=== PATIENT | female | born 1980 | race African-American/Black ===

== ENCOUNTER 2017-06-22 10:41 | Emergency (ER) | payer MEDICAID, OTHER ==
--- NOTE | 2017-06-22 11:08 | ER Document Report ---
ED Medical Screen (RME) - General Chief Complaint: Abdominal Pain Stated Complaint: ABDOMINAL PAIN Time Seen by Provider: 06/22/17 11:06 TRAVEL OUTSIDE OF THE [place] IN LAST 30 DAYS: No - HPI Notes: 06/22/17 11:07 Pain at scar along with spotting and vaginal discharge. - Related Data Allergies/Adverse Reactions: No Known Drug Allergies Allergy (Verified 06/22/17 10:42) Past Medical History - Past Medical History Cardiac Medical History: Denies: Hx Hypertension Pulmonary Medical History: Denies: Hx Asthma, Hx Bronchitis Musculoskeltal Medical History: Denies Hx Arthritis, Denies Hx Musculoskeletal Deformity, Denies Hx Musculoskeletal Trauma Traumatic Medical History: Denies: Hx Fractures Past Surgical History: Reports: Hx Abdominal Surgery - umbilical hernia, Hx Section - 2, Hx Tubal Ligation, Hx Umbilical Hernia - Immunizations Immunizations up to date: Yes Hx Diphtheria, Pertussis, Tetanus Vaccination: Yes Review of Systems - Review of Systems Constitutional: No symptoms reported EENT: No symptoms reported Cardiovascular: No symptoms reported Respiratory: No symptoms reported Gastrointestinal: Abdominal pain Genitourinary: No symptoms reported Female Genitourinary: Vaginal discharge Musculoskeletal: No symptoms reported Skin: No symptoms reported Hematologic/Lymphatic: No symptoms reported Neurological/Psychological: No symptoms reported Physical Exam - Vital signs Vitals: Temp Pulse Resp BP Pulse Ox 97.8 F 90 20 136/86 H 100 06/22/17 10:44 06/22/17 10:44 06/22/17 10:44 06/22/17 10:44 06/22/17 10:44 - Respiratory Respiratory status: No respiratory distress Chest status: Nontender Breath sounds: Normal Chest palpation: Normal Course - Vital Signs Vital signs: Temp Pulse Resp BP Pulse Ox 97.8 F 90 20 136/86 H 100 06/22/17 10:44 06/22/17 10:44 06/22/17 10:44 06/22/17 10:44 06/22/17 10:44
--- NOTE | 2017-06-22 11:32 | ER Document Report ---
ED GI/ - General Chief Complaint: Abdominal Pain Stated Complaint: ABDOMINAL PAIN Time Seen by Provider: 06/22/17 11:06 Notes: Patient is a 37-year-old female who presents emergency department the chief complaint of pelvic pain for the past 5 months. Patient states that she has had cramping and pelvic pain with pain with intercourse most recently and noticed discharge over the past 4 weeks. Patient denies any fevers or chills. She states that she is sexually active with her fianc and does not use protection. States that her last menstrual period was June 09. She states that recently she did try to douche and noticed significant spotting afterwards. She states that she intermittently has some blood with the discharge. She went to go [facility]up [facility] for [facility] complaint but they referred her to the emergency department. Past medical history significant for previous cervical abnormality on Pap smear. States her last Pap smear was 3 years ago. History of depression, arthritis, asthma and GERD. Previous tubal ligation Past medical history significant for 1 with a previous in 2009. Patient is a tobacco smoker. [facility] care is with the [facility] TRAVEL OUTSIDE OF THE [place] IN LAST 30 DAYS: No - Related Data Allergies/Adverse Reactions: No Known Drug Allergies Allergy (Verified 06/22/17 10:42) Past Medical History - Social History Smoking Status: Current Every Day Smoker Frequency of alcohol use: None Drug Abuse: None Family History: Arthritis, Hyperlipidemia. denies: CAD - atrial fib Patient has suicidal ideation: No Patient has homicidal ideation: No - Past Medical History Cardiac Medical History: Denies: Hx Hypertension Pulmonary Medical History: Denies: Hx Asthma, Hx Bronchitis Renal/ Medical History: Denies: Hx Peritoneal Dialysis Musculoskeltal Medical History: Denies Hx Arthritis, Denies Hx Musculoskeletal Deformity, Denies Hx Musculoskeletal Trauma Traumatic Medical History: Denies: Hx Fractures Past Surgical History: Reports: Hx Abdominal Surgery - umbilical hernia, Hx Section - 2, Hx Tubal Ligation, Hx Umbilical Hernia - Immunizations Immunizations up to date: Yes Hx Diphtheria, Pertussis, Tetanus Vaccination: Yes Review of Systems - Review of Systems Constitutional: No symptoms reported Cardiovascular: No symptoms reported Respiratory: No symptoms reported Gastrointestinal: No symptoms reported Genitourinary: No symptoms reported Female Genitourinary: See HPI Musculoskeletal: No symptoms reported -: Yes All other systems reviewed and negative Physical Exam - Vital signs Vitals: Temp Pulse Resp BP Pulse Ox 97.8 F 90 20 136/86 H 100 06/22/17 10:44 06/22/17 10:44 06/22/17 10:44 06/22/17 10:44 06/22/17 10:44 - Notes Notes: PHYSICAL EXAM GENERAL: Alert, interacts well. HEAD: Normocephalic, atraumatic. EYES: Pupils equal, round, and reactive to light. Extraocular movements intact. ENT: Oral mucosa moist, tongue midline. NECK: Full range of motion. Supple. Trachea midline. LUNGS: Clear to auscultation bilaterally, no wheezes, rales, or rhonchi. No respiratory distress. HEART: Regular rate and rhythm. No murmurs, gallops, or rubs. ABDOMEN: Soft, nondistended, moderate suprapubic tenderness. No guarding, rebound, or rigidity.. Bowel sounds present in all 4 quadrants. FEMALE : Normal external exam. No evidence of lesions, lacerations, bruising or vesicles. Speculum exam normal cervix closed. evidence of vaginal discharge that is yellow/cloudy. Cervix is a collection of cloudy fluid. The cervix is enlarged, friable without smooth borders.. No evidence of lesions. No vaginal bleeding. Bimanual exam positive for cervical motion tenderness. No adnexal mass or adnexal tenderness. EXTREMITIES: Moves all 4 extremities spontaneously. No edema, radial and dorsalis pedis pulses 2/4 bilaterally. No cyanosis. NEUROLOGICAL: Alert and oriented x4. Normal speech. PSYCH: Normal affect, normal mood. SKIN: Warm, dry, normal turgor. No rashes or lesions noted. Course - Re-evaluation Re-evalutation: 06/22/17 16:56 Patient is a 37-year-old female is hemodynamically stable, no acute distress and afebrile. Abdominal exam concerning for PID. Patient without any evidence of leukocytosis or anemia. Chemistry without evidence of electrolyte abnormalities, renal or hepatic insufficiency. Urinalysis without evidence of UTI. Patient is afebrile. Repeat exams without any significant tenderness after p.o. pain medication. Given exam concerning for PID will treat despite negative serologies. Patient will be discharged home on doxycycline [facility] Patient given strict return precautions and stable for discharge home. - Vital Signs Vital signs: Temp Pulse Resp BP Pulse Ox 97.8 F 90 20 136/86 H 100 06/22/17 10:44 06/22/17 10:44 06/22/17 10:44 06/22/17 10:44 06/22/17 10:44 - Laboratory Result Diagrams: 06/22/17 13:28 06/22/17 13:28 Laboratory results interpreted by me: 06/22/17 06/22/17 06/22/17 13:05 13:28 13:28 Hgb 11.7 L Hct 34.5 L Chloride 108 H Total Bilirubin < 0.1 L Urine Blood SMALL H - Diagnostic Test Radiology reviewed: Reports reviewed Discharge - Discharge Clinical Impression: Pelvic pain, PID (acute pelvic inflammatory disease) Condition: Good Disposition: HOME, SELF-CARE Additional Instructions: PELVIC PAIN: There are many causes of pain in the pelvic area. The cause could be the tubes, ovaries, uterus, intestines, appendix, pelvic muscles and connective tissue, or the urinary tract. The cause of your pelvic pain is not clear. However, it seems safe to treat you outside the hospital. If the pain sounds like a temporary problem, we sometimes wait to see if it goes away. Other patients may need additional tests, such as pelvic ultrasound or cultures. Conditions may change. Call us or come back for reexamination if any problems occur, such as: (1) Pain that becomes more severe, steady, or becomes concentrated in one specific area. Also, pain that is more severe with movement or coughing. (2) Vomiting that persists or becomes more frequent. (3) Blood in the vomitus, urine, or bowel movements. Blood in the stool may have a tarry or black appearance. (4) Shaking chills or fever greater than 100 degrees. (5) The abdomen becomes more distended or swollen. (6) Bowel movements cease. (7) Heavy vaginal bleeding. PELVIC INFLAMMATORY DISEASE: You have been diagnosed as having pelvic inflammatory disease (PID). This is an infection of the fallopian tubes and surrounding areas of the pelvis. Symptoms are usually pelvic pain and discharge. The infection can do permanent damage to the tubes and ovaries. It should be taken very seriously. Treatment is antibiotics, which may be given by vein or by injection if the infection seems serious. It's important that you receive all recommended medication. Condoms help prevent spread of this infection to others. Because this infection is spread sexually, it's important that your sexual partner be checked before resuming sexual relations. If a culture shows gonorrhea or chlamydia organisms, the law requires that this be reported to the health department. Call the doctor or return at once if you develop increasing fever, rash, severe pelvic pain, vaginal bleeding (other than your period), or problems with your bladder or bowels. ANTIBIOTIC THERAPY: You have been given an antibiotic prescription. It's important that you take all the medication, unless instructed otherwise by your physician. Failure to complete the entire course can result in relapse of your condition. Common side effects of antibiotics include nausea, intestinal cramping, or diarrhea. Women may develop vaginal yeast infections, and babies can get yeast (thrush) in the mouth following the use of antibiotics. Contact your physician if you develop significant side effects from this medication. Allergy to this antibiotic can result in hives, wheezing, faintness, or itching. If symptoms of allergy occur, stop the medication and call the doctor. CEPHALOSPORINS: An antibiotic of the cephalosporin class has been prescribed. This type of antibiotic covers a wide variety of infections, including those of the skin, lungs, middle ear, and urinary tract. This antibiotic is somewhat similar to the penicillin family. In rare cases , a person who is allergic to penicillin will also be allergic to this medication. If you have had a severe allergic reaction to penicillin, and have not taken this antibiotic since that time, notify your doctor. Antibiotics which cover many germs ("broad spectrum" antibiotics) are more likely to cause diarrhea or "yeast" infections. Women prone to vaginal yeast problems may suffer an attack after taking this antibiotic. In infants, oral thrush (white spots "stuck" on the cheek) or yeast diaper rash may result. See your doctor if these problems occur. Call the doctor at once if you develop hives, itching, shortness of breath , or lightheadedness. DOXYCYCLINE: Doxycycline (Vibramycin, Doryx) is an antibiotic of the tetracycline family. This type of drug is useful for infections of the respiratory tract and genital tract, and is sometimes used for intestinal infections. Unlike most tetracyclines, doxycycline can be taken with food. It is longer acting, and (usually) less prone to side effects than regular tetracycline. Tetracycline antibiotics can stain immature teeth and SHOULD NOT BE TAKEN BY CHILDREN, NURSING MOTHERS, OR WOMEN. Tetracyclines can make you more prone to sunburn. Abdominal cramping, nausea, and diarrhea are occasional side effects. Women may experience vaginal yeast infections. Call the doctor at once if you develop hives, itching, shortness of breath , or lightheadedness. AZITHROMYCIN: Azithromycin (Zithromax) is a broad spectrum antibiotic in the same class as erythromycin. It can treat a variety of bacterial infections, but is most frequently used for respiratory infections. Azithromycin is extremely long-lasting. It accumulates in body tissues and continues to kill bacteria for many days. In order to improve absorption, Azithromycin should be taken at least one hour before or two hours after a meal. It does not have the same strong tendency to upset the stomach as erythromycin and is usually very well tolerated. Patients who have had a rash or other true allergic reactions to erythromycin should not take this medication. Call if you develop gastrointestinal distress, severe diarrhea, rash, hives, itching, or shortness of breath. FOLLOW-UP CARE: If you have been referred to a physician for follow-up care, call the physician s office for an appointment as you were instructed or within the next two days. If you experience worsening or a significant change in your symptoms, notify the physician immediately or return to the Emergency Department at any time for re-evaluation. Prescriptions: Doxycycline Hyclate 100 mg PO BID #28 capsule Forms: Return to Work Referrals: KORIN VILLATORO MD [Primary Care Provider] - Follow up as needed [facility] [Provider Group] - 07/05/17 [facility] [Provider Group] - 07/02/17
[2017-06-22 12:17] LABS: BACTERIA (WET MOUNT) 4+ BACTERIA SEEN; RBCS (WET MOUNT) 2+ RBCS SEEN; T.VAGINALIS (WET MOUNT) NO TRICHOMONAS SEEN; WBCS (WET MOUNT) 2+ WBCS SEEN; YEAST (WET MOUNT) NO YEAST SEEN
[2017-06-22 13:41] LABS: ABSOLUTE BASOPHILS # (AUTO) 0.1 10^3/uL (0.0-0.2); ABSOLUTE EOSINOPHILS # (AUTO) 0.1 10^3/uL (0.0-0.6); ABSOLUTE MONOCYTES (AUTO) 0.7 10^3/uL (0.1-1.4); HEMOGLOBIN 11.7 g/dL (12.0-15.5); TOTAL CELLS COUNTED % (AUTO) 100 %
[2017-06-22 13:42] LABS: CHLAM PCR NOT DETECTED (NOT DETECT); GON PCR NOT DETECTED (NOT DETECT)
[2017-06-22 13:50] LABS: ABSOLUTE LYMPHOCYTES (AUTO) 2.2 10^3/uL (0.5-4.7); ABSOLUTE NEUT (AUTO) 5.5 10^3/uL (1.7-8.2); BASOPHILS % (AUTO) 1.2 % (0-2); EOSINOPHILS % (AUTO) 1.7 % (0-6); HEMATOCRIT 34.5 % (36.0-47.0); LYMPHOCYTES % (AUTO) 25.4 % (13-45); MEAN CORPUSCULAR HEMOGLOBIN 28.7 pg (27.0-33.4); MEAN CORPUSCULAR HGB CONC 33.8 g/dL (32.0-36.0); MEAN CORPUSCULAR VOLUME 85 fl (80-97); MONOCYTES % (AUTO) 7.7 % (3-13); PLATELET COUNT 357 10^3/uL (150-450); RED BLOOD COUNT 4.06 10^6/uL (3.72-5.28); WHITE BLOOD COUNT 8.6 10^3/uL (4.0-10.5)
[2017-06-22 13:56] LABS: ALANINE AMINOTRANSFERASE 24 U/L (9-52); ALBUMIN 3.5 g/dL (3.5-5.0); ALKALINE PHOSPHATASE 57 U/L (38-126); ANION GAP 11 (5-19); ASPARTATE AMINO TRANSFERASE 15 U/L (14-36); BLOOD UREA NITROGEN 12 mg/dL (7-20); CALCIUM 9.7 mg/dL (8.4-10.2); CARBON DIOXIDE 24 mmol/L (22-30); CHLORIDE 108 mmol/L (98-107); GLUCOSE 94 mg/dL (75-110); POTASSIUM 4.1 mmol/L (3.6-5.0); SODIUM 143.1 mmol/L (137-145); TOTAL PROTEIN 6.9 g/dL (6.3-8.2)
[2017-06-22 13:59] LABS: APPEARANCE,URINE CLEAR; BILIRUBIN,URINE NEGATIVE (NEGATIVE); COLOR,URINE YELLOW; GLUCOSE, URINE NEGATIVE (NEGATIVE); KETONES,URINE NEGATIVE (NEGATIVE); LEUKOCYTE ESTERASE,URINE NEGATIVE (NEGATIVE); NITRITE,URINE NEGATIVE (NEGATIVE); PROTEIN,URINE NEGATIVE (NEGATIVE); UROBILINOGEN,URINE NEGATIVE mg/dL (<2.0)
[2017-06-22 14:00] LABS: BILIRUBIN,TOTAL < 0.1 mg/dL (0.2-1.3)
[2017-06-22] MEDS ORDERED: ACETAMINOPHEN 325 MG TABLET PO ONE (14:16)
[2017-06-22] MEDS ORDERED: IBUPROFEN 800 MG TABLET PO ONE (14:16)
--- NOTE | 2017-06-22 16:49 | RADIOLOGY REPORT (SQ) ---
EXAM DESCRIPTION: U/S NON OB PEL TV W/DOPPLER COMPLETED DATE/TIME: 06/22/2017 4:25 pm REASON FOR STUDY: vaginal discharge, CMT, (-)GC, h/o abnl pap COMPARISON: None. TECHNIQUE: Dynamic and static grayscale images acquired of the pelvis via transvaginal approach and recorded on PACS. Additional selected color Doppler and spectral images recorded. LIMITATIONS: None. FINDINGS: UTERUS: Contour normal. No mass. ENDOMETRIAL STRIPE: No focal or generalized thickening. No masses. CERVIX: No nabothian cysts. RIGHT ADNEXUM: Ovary not visualized. LEFT ADNEXUM: Ovary not visualized. FREE FLUID: None noted. OTHER: No other significant finding. MEASUREMENTS: UTERUS: 10.9 x 4.6 x 5.5 cm ENDOMETRIAL STRIPE: 12 mm RIGHT OVARY: Not visualized. LEFT OVARY: Not visualized. IMPRESSION: Endometrium as above. Correlate with menstrual cycle. TECHNICAL DOCUMENTATION: JOB ID: [id number] [employer]- All Rights Reserved Reading location - IP/workstation name: [email or web address]
[2017-06-22] MEDS ORDERED: LIDOCAINE 1% INJ-PF (10 MG/ML) 30 ML SDV INJ ONE (16:55)
[2017-06-22] MEDS ORDERED: DOXYCYCLINE HYCLATE 100 MG TABLET PO ONE (16:55)
[2017-06-22] MEDS ORDERED: AZITHROMYCIN 250 MG TABLET PO ONE (16:55)
[2017-06-22] MEDS ORDERED: CEFTRIAXONE INJ 250 MG VIAL IM ONE (16:55)
[2017-06-22 18:12] VITALS: BP 127/87
== END 2017-06-22 18:10 | disposition home or self-care (01) ==
LOC: ER 10:41
DX: N73.9 Female pelvic inflammatory disease, unspecified (principal); R10.2 Pelvic and perineal pain; F17.200 Nicotine dependence, unspecified, uncomplicated
CPT/HCPCS: 99284; 96372; 36415; 87210; 84703; 85025; 80053; 81001; 87491; 87591; 76830; 93976; J3490; J0696

== ENCOUNTER 2017-07-30 19:47 | Emergency (ER) | payer OTHER ==
[2017-07-30 20:04] VITALS: BP 157/106
[2017-07-30] MEDS ORDERED: FENTANYL CITRATE INJ/PF 100 MCG/2 ML AMPUL IM ONE (20:06)
--- NOTE | 2017-07-30 20:07 | ER Document Report ---
ED Medical Screen (RME) - General Chief Complaint: Abdominal Pain Stated Complaint: ABDOMINAL PAIN Time Seen by Provider: 07/30/17 20:00 Notes: RAPID MEDICAL EVALUATION DISCLOSURE I have seen this patient as part of a Rapid Medical Evaluation and, if applicable, placed any initially appropriate orders. The patient will be seen and fully evaluated, including a full history and physical exam, by a provider ( in Main ED or Fast Track) when a room becomes available. 37-year-old female here with complaints of continued and progressively worsening lower abdominal pain and vaginal bleeding with clots. The abdominal pain has been ongoing for several months now however the bleeding with clots has been over the last 2 weeks. She has not had any nausea vomiting diarrhea dysuria. She has been taking Motrin for the pain. EXAM Mild diffuse tenderness to palpation more prominent in lower quadrants exam deferred to main provider TRAVEL OUTSIDE OF THE [place] IN LAST 30 DAYS: No - Related Data Allergies/Adverse Reactions: No Known Drug Allergies Allergy (Verified 06/22/17 10:42) Past Medical History - Past Medical History Cardiac Medical History: Denies: Hx Hypertension Pulmonary Medical History: Denies: Hx Asthma, Hx Bronchitis Renal/ Medical History: Denies: Hx Peritoneal Dialysis Musculoskeltal Medical History: Denies Hx Arthritis, Denies Hx Musculoskeletal Deformity, Denies Hx Musculoskeletal Trauma Traumatic Medical History: Denies: Hx Fractures Past Surgical History: Reports: Hx Abdominal Surgery - umbilical hernia, Hx Section - 2, Hx Tubal Ligation, Hx Umbilical Hernia - Immunizations Immunizations up to date: Yes Hx Diphtheria, Pertussis, Tetanus Vaccination: Yes Physical Exam - Vital signs Vitals: Temp Pulse Resp BP Pulse Ox 98.2 F 69 18 157/106 H 100 07/30/17 20:03 07/30/17 20:03 07/30/17 20:03 07/30/17 20:03 07/30/17 20:03 Course - Vital Signs Vital signs: Temp Pulse Resp BP Pulse Ox 98.2 F 69 18 157/106 H 100 07/30/17 20:03 07/30/17 20:03 07/30/17 20:03 07/30/17 20:03 07/30/17 20:03 Doctor's Discharge - Discharge Referrals: KORIN VILLATORO MD [Primary Care Provider] - Follow up as needed
[2017-07-30 21:10] LABS: ABSOLUTE EOSINOPHILS # (AUTO) 0.1 10^3/uL (0.0-0.6); ABSOLUTE LYMPHOCYTES (AUTO) 2.1 10^3/uL (0.5-4.7); ABSOLUTE MONOCYTES (AUTO) 0.6 10^3/uL (0.1-1.4); ABSOLUTE NEUT (AUTO) 6.7 10^3/uL (1.7-8.2); BASOPHILS % (AUTO) 0.3 % (0-2); EOSINOPHILS % (AUTO) 1.1 % (0-6); HEMATOCRIT 33.9 % (36.0-47.0); HEMOGLOBIN 11.3 g/dL (12.0-15.5); MEAN CORPUSCULAR HEMOGLOBIN 27.6 pg (27.0-33.4); MEAN CORPUSCULAR HGB CONC 33.3 g/dL (32.0-36.0); MEAN CORPUSCULAR VOLUME 83 fl (80-97); MONOCYTES % (AUTO) 5.8 % (3-13); PLATELET COUNT 467 10^3/uL (150-450); RED BLOOD COUNT 4.08 10^6/uL (3.72-5.28); RED CELL DISTRIBUTION WIDTH 13.9 % (11.5-14.0); SEGMENTED NEUTROPHILS % (AUTO) 70.8 % (42-78); TOTAL CELLS COUNTED % (AUTO) 100 %; WHITE BLOOD COUNT 9.5 10^3/uL (4.0-10.5)
--- NOTE | 2017-07-30 21:18 | RADIOLOGY REPORT (SQ) ---
EXAM DESCRIPTION: U/S NON OB PEL TV W/DOPPLER COMPLETED DATE/TIME: 07/30/2017 8:56 pm REASON FOR STUDY: hx PID, c/o lower abd pain; eval TOA PID etc COMPARISON: None. TECHNIQUE: Dynamic and static grayscale images acquired of the pelvis via transvaginal approach and recorded on PACS. Additional selected color Doppler and spectral images recorded. LIMITATIONS: Bowel gas. FINDINGS: UTERUS: Heterogeneous appearance of the uterus. Endometrial stripe not identified. RIGHT OVARY AND DOPPLER: Ovary not visualized. LEFT OVARY AND DOPPLER: Ovary not visualized. FREE FLUID: None noted. OTHER: No other significant finding. MEASUREMENTS: UTERUS: 11.4 x 6.7 x 4.2 cm IMPRESSION: Heterogeneous appearance of the uterus. Endometrial stripe not identified. Nonvisualization of the ovaries. TECHNICAL DOCUMENTATION: JOB ID: [id number] [employer]- All Rights Reserved Rev-07/02 Reading location - IP/workstation name: [email or web address]
[2017-07-30 21:28] LABS: ALANINE AMINOTRANSFERASE 27 U/L (9-52); ALBUMIN 4.3 g/dL (3.5-5.0); ALKALINE PHOSPHATASE 64 U/L (38-126); ANION GAP 12 (5-19); ASPARTATE AMINO TRANSFERASE 17 U/L (14-36); BILIRUBIN,DIRECT 0.3 mg/dL (0.0-0.4); BILIRUBIN,TOTAL 0.3 mg/dL (0.2-1.3); BLOOD UREA NITROGEN 13 mg/dL (7-20); CALCIUM 9.8 mg/dL (8.4-10.2); CARBON DIOXIDE 27 mmol/L (22-30); CHLORIDE 105 mmol/L (98-107); GLUCOSE 89 mg/dL (75-110); SODIUM 143.5 mmol/L (137-145); TOTAL PROTEIN 7.9 g/dL (6.3-8.2)
[2017-07-30 23:04] LABS: T.VAGINALIS (WET MOUNT) NO TRICHOMONAS SEEN; WBCS (WET MOUNT) 2+ WBCS SEEN; YEAST (WET MOUNT) NO YEAST SEEN
[2017-07-31] MEDS ORDERED: CEFTRIAXONE INJ 250 MG VIAL IM ONE (00:11)
[2017-07-31] MEDS ORDERED: LIDOCAINE 1% INJ-PF (10 MG/ML) 30 ML SDV INFIL ONE (00:11)
--- NOTE | 2017-07-31 00:11 | ER Document Report ---
ED General - General Chief Complaint: Abdominal Pain Stated Complaint: ABDOMINAL PAIN Time Seen by Provider: 07/30/17 20:00 Mode of Arrival: Ambulatory Information source: Patient Notes: 29-year-old female patient presents with complaint of 2 month history of low abdominal/pelvic pain. Patient reports that she has a mucousy vaginal discharge that is different from usual. Patient reports that she was seen here on June 22 and placed on doxycycline. Patient was supposed to follow-up with the [place] clinic however patient has not received an appropriate appointment yet. Patient reports that she has also been having irregular periods with irregular bleeding and breakthrough bleeding. Patient reports her last normal menstrual cycle was in February and that ever since then she has had irregular bleeding. Patient reports past medical history of a tubal ligation, and hernia repair. She denies any fevers, nausea or vomiting. TRAVEL OUTSIDE OF THE U[place]S. IN LAST 30 DAYS: No - Related Data Allergies/Adverse Reactions: No Known Drug Allergies Allergy (Verified 06/22/17 10:42) Past Medical History - General Information source: Patient - Social History Smoking Status: Current Every Day Smoker Frequency of alcohol use: None Drug Abuse: None Family History: Arthritis, Hyperlipidemia. denies: CAD - atrial fib Patient has suicidal ideation: No Patient has homicidal ideation: No - Past Medical History Cardiac Medical History: Denies: Hx Hypertension Pulmonary Medical History: Denies: Hx Asthma, Hx Bronchitis Renal/ Medical History: Denies: Hx Peritoneal Dialysis Musculoskeltal Medical History: Denies Hx Arthritis, Denies Hx Musculoskeletal Deformity, Denies Hx Musculoskeletal Trauma Traumatic Medical History: Denies: Hx Fractures Past Surgical History: Reports: Hx Abdominal Surgery - umbilical hernia, Hx Section - 2, Hx Tubal Ligation, Hx Umbilical Hernia - Immunizations Immunizations up to date: Yes Hx Diphtheria, Pertussis, Tetanus Vaccination: Yes Review of Systems - Review of Systems Constitutional: No symptoms reported EENT: No symptoms reported Cardiovascular: No symptoms reported Respiratory: No symptoms reported Gastrointestinal: See HPI Genitourinary: See HPI Female Genitourinary: No symptoms reported Musculoskeletal: No symptoms reported Skin: No symptoms reported Hematologic/Lymphatic: No symptoms reported Neurological/Psychological: No symptoms reported Physical Exam - Vital signs Vitals: Temp Pulse Resp BP Pulse Ox 98.2 F 69 18 157/106 H 100 07/30/17 20:03 07/30/17 20:03 07/30/17 20:03 07/30/17 20:03 07/30/17 20:03 - Notes Notes: PHYSICAL EXAMINATION: GENERAL: Well-appearing, well-nourished and in no acute distress. HEAD: Atraumatic, normocephalic. EYES: Pupils equal round and reactive to light, extraocular movements intact, conjunctiva are normal. ENT: Nares patent, oropharynx clear without exudates. Moist mucous membranes. NECK: Normal range of motion, supple without lymphadenopathy LUNGS: Breath sounds clear to auscultation bilaterally and equal. No wheezes rales or rhonchi. HEART: Regular rate and rhythm without murmurs ABDOMEN: Soft, nontender, nondistended abdomen. No guarding, no rebound. No masses appreciated. Female : Friable cervix, +CMT, +thin yellow/brown discharge. Musculoskeletal: Normal range of motion, no pitting or edema. No cyanosis. NEUROLOGICAL: Cranial nerves grossly intact. Normal speech, normal gait. Normal sensory, motor exams PSYCH: Normal mood, normal affect. SKIN: Warm, Dry, normal turgor, no rashes or lesions noted. Course - Re-evaluation Re-evalutation: Patient was seen here on 06/22/17 for similar symptoms and was diagnosed with PID despite a mostly normal workup. Patient returns today with similar symptoms. Patient reports that the symptoms did get better after taking the doxycycline however patient states that now the symptoms have returned. Patient denies having a proper follow-up with a PAYROLL MACHINE OPERATOR as she states that she sees the [place] and has been given a referral but no appointment yet. CBC, comprehensive are unremarkable. Transvaginal ultrasound is unremarkable. Patient has exquisite vaginal tenderness with insertion of the speculum, patient has copious amounts of brownish yellow thin discharge well as cervical motion tenderness. I will be treating patient symptomatically for PID and will place her on doxycycline as well as Flagyl. I will also treat patient with 250 mg of IM Rocephin prior to her departure today. Patient is agreeable to this plan and reports that she will call Wednesday to try to expedite her referral to the [place] [facility] clinic in [place]. I did give patient information on the [facility] department and told her that they may be able to get her in sooner to see a PAYROLL MACHINE OPERATOR provider. Patient given ED return precautions to develop to include worsening abdominal pain and development of fever. Dictation of this chart was performed using voice recognition software; therefore, there may be some unintended grammatical errors. - Vital Signs Vital signs: Temp Pulse Resp BP Pulse Ox 98.2 F 69 18 157/106 H 100 07/30/17 20:03 07/30/17 20:03 07/30/17 20:03 07/30/17 20:03 07/30/17 20:03 - Laboratory Result Diagrams: 07/30/17 20:55 07/30/17 20:55 Laboratory results interpreted by me: 07/30/17 20:55 Hgb 11.3 L Hct 33.9 L Plt Count 467 H Discharge - Discharge Clinical Impression: Pelvic pain Condition: Stable Disposition: HOME, SELF-CARE Additional Instructions: Pelvic Inflammatory Disease You have been diagnosed as having pelvic inflammatory disease (PID). This is an infection of the fallopian tubes and surrounding areas of the pelvis. Symptoms are usually pelvic pain and discharge. The infection can do permanent damage to the tubes and ovaries. It should be taken very seriously. Treatment is antibiotics, which may be given by vein or by injection if the infection seems serious. It's important that you receive all recommended medication. Condoms help prevent spread of this infection to others. Because this infection is spread sexually, it's important that your sexual partner be checked before resuming sexual relations. If a culture shows gonorrhea or chlamydia organisms, the law requires that this be reported to the health department. Call the doctor or return at once if you develop increasing fever, rash, severe pelvic pain, vaginal bleeding (other than your period), or problems with your bladder or bowels. Pelvic Pain There are many causes of pain in the pelvic area. The cause could be the tubes, ovaries, uterus, intestines, appendix, pelvic muscles and connective tissue, or the urinary tract. The cause of your pelvic pain is not clear. However, it seems safe to treat you outside the hospital. If the pain sounds like a temporary problem, we sometimes wait to see if it goes away. Other patients may need additional tests, such as pelvic ultrasound or cultures. Conditions may change. Call us or come back for reexamination if any problems occur, such as: (1) Pain that becomes more severe, steady, or becomes concentrated in one specific area. Also, pain that is more severe with movement or coughing. (2) Vomiting that persists or becomes more frequent. (3) Blood in the vomitus, urine, or bowel movements. Blood in the stool may have a tarry or black appearance. (4) Shaking chills or fever greater than 100 degrees. (5) The abdomen becomes more distended or swollen. (6) Bowel movements cease. (7) Heavy vaginal bleeding. Dysfunctional Uterine Bleeding You're having an abnormal pattern of bleeding from the uterus. We call this dysfunctional uterine bleeding. It is most often caused by a hormone imbalance. Most often this is temporary and no cause is found. There's no evidence of , tumors, or infection as a cause. Dysfunctional uterine bleeding is especially common at times when the normal menstrual cycle is disturbed -- whether by recent , use of control pills or hormones, or impending menopause. Some medical problems lead to dysfunctional bleeding, such as obesity or being very underweight, stress, or thyroid problems. In many cases, the menstrual cycle will return to normal without any treatment. Where the bleeding is significant, high-dose estrogen will usually stop the bleeding within a day of two. A cycle or two of hormones ( control pills) can help restore the uterus to normal. In some patients where bleeding is severe or resistant to treatment, a D&C is required. A endometrial biopsy (a sample of the inside of the uterus) may be recommended for some older women. This would be done by a gynecology specialist. Treatment for anemia may be required if bleeding is severe. You should rest and avoid intercourse until the bleeding is controlled. Call the doctor or return for re-examination if you feel faint, have increasing pain, or have a major increase in the amount of bleeding. Please take medications as prescribed. Please follow-up with your TESTING DIRECTOR provider in [place]. Return to the emergency department if you develop any of the above symptoms. Prescriptions: Doxycycline Hyclate 100 mg PO BID #14 capsule Metronidazole [Flagyl 500 mg Tablet] 500 mg PO Q6H #28 tablet Ondansetron [Zofran Odt 4 mg Tablet] 1 - 2 tab PO Q4H PRN #15 tab.rapdis PRN Reason: For Nausea/Vomiting Referrals: KORIN VILLATORO MD [Primary Care Provider] - Follow up as needed
[2017-07-31] MEDS ORDERED: HYDROCODONE/ACETAMINOPHEN 5-325 MG (6 TAB/ER DISP) PO PRN (00:26)
[2017-07-31 00:29] LABS: CHLAM PCR NOT DETECTED (NOT DETECT); GON PCR NOT DETECTED (NOT DETECT)
== END 2017-07-31 00:15 | disposition home or self-care (01) ==
LOC: ER 19:47
DX: R10.30 Lower abdominal pain, unspecified (principal); R10.2 Pelvic and perineal pain; N89.8 Other specified noninflammatory disorders of vagina; F17.200 Nicotine dependence, unspecified, uncomplicated
CPT/HCPCS: 99284; 96372; 36415; 87210; 85025; 81025; 80053; 87491; 87591; 76830; 93976; J3010; J3490; J0696

== ENCOUNTER 2017-09-05 22:49 | Emergency (ER) | payer OTHER ==
[2017-09-06] MEDS ORDERED: NORMAL SALINE 1000 ML 1,000 ML IV ONE (00:25)
[2017-09-06] MEDS ORDERED: MORPHINE SULFATE 10 MG/ML INJ IV ONE (00:25)
--- NOTE | 2017-09-06 00:26 | ER Document Report ---
ED Medical Screen (RME) - General Chief Complaint: Abdominal Pain Stated Complaint: ABDOMINAL PAIN Time Seen by Provider: 09/06/17 00:23 Mode of Arrival: Ambulatory Information source: Patient TRAVEL OUTSIDE OF THE [place] IN LAST 30 DAYS: No - HPI Patient complains to provider of: Left lower quadrant abdominal pain Notes: 09/06/17 00:25 RAPID MEDICAL EVALUATION DISCLOSURE I have seen this patient as part of a Rapid Medical Evaluation and, if applicable, placed any initially appropriate orders. The patient will be seen and fully evaluated, including a full history and physical exam, by a provider ( in Main ED or Fast Track) when a room becomes available. - Related Data Allergies/Adverse Reactions: No Known Drug Allergies Allergy (Verified 06/22/17 10:42) Past Medical History - Past Medical History Cardiac Medical History: Denies: Hx Hypertension Pulmonary Medical History: Denies: Hx Asthma, Hx Bronchitis Renal/ Medical History: Denies: Hx Peritoneal Dialysis Musculoskeltal Medical History: Denies Hx Arthritis, Denies Hx Musculoskeletal Deformity, Denies Hx Musculoskeletal Trauma Traumatic Medical History: Denies: Hx Fractures Past Surgical History: Reports: Hx Abdominal Surgery - umbilical hernia, Hx Section - 2, Hx Tubal Ligation, Hx Umbilical Hernia - Immunizations Immunizations up to date: Yes Hx Diphtheria, Pertussis, Tetanus Vaccination: Yes Physical Exam - Vital signs Vitals: Temp Pulse Resp BP Pulse Ox 98.4 F 76 18 184/118 H 99 09/05/17 23:30 09/05/17 23:30 09/05/17 23:30 09/05/17 23:30 09/05/17 23:30 Course - Vital Signs Vital signs: Temp Pulse Resp BP Pulse Ox 98.4 F 76 18 184/118 H 99 09/05/17 23:30 09/05/17 23:30 09/05/17 23:30 09/05/17 23:30 09/05/17 23:30
[2017-09-06 00:47] LABS: ABSOLUTE BASOPHILS # (AUTO) 0.1 10^3/uL (0.0-0.2); ABSOLUTE EOSINOPHILS # (AUTO) 0.1 10^3/uL (0.0-0.6); ABSOLUTE LYMPHOCYTES (AUTO) 3.1 10^3/uL (0.5-4.7); ABSOLUTE MONOCYTES (AUTO) 0.7 10^3/uL (0.1-1.4); ABSOLUTE NEUT (AUTO) 5.9 10^3/uL (1.7-8.2); BASOPHILS % (AUTO) 0.5 % (0-2); EOSINOPHILS % (AUTO) 1.5 % (0-6); HEMATOCRIT 34.8 % (36.0-47.0); HEMOGLOBIN 11.3 g/dL (12.0-15.5); MEAN CORPUSCULAR HGB CONC 32.4 g/dL (32.0-36.0); MEAN CORPUSCULAR VOLUME 83 fl (80-97); MONOCYTES % (AUTO) 7.4 % (3-13); PLATELET COUNT 359 10^3/uL (150-450); RED BLOOD COUNT 4.18 10^6/uL (3.72-5.28); RED CELL DISTRIBUTION WIDTH 14.9 % (11.5-14.0); SEGMENTED NEUTROPHILS % (AUTO) 59.6 % (42-78); TOTAL CELLS COUNTED % (AUTO) 100 %; WHITE BLOOD COUNT 9.9 10^3/uL (4.0-10.5)
[2017-09-06 00:59] LABS: ALANINE AMINOTRANSFERASE 33 U/L (9-52); ALBUMIN 3.6 g/dL (3.5-5.0); ALKALINE PHOSPHATASE 63 U/L (38-126); ANION GAP 12 (5-19); ASPARTATE AMINO TRANSFERASE 17 U/L (14-36); BILIRUBIN,DIRECT 0.2 mg/dL (0.0-0.4); BILIRUBIN,TOTAL 0.3 mg/dL (0.2-1.3); BLOOD UREA NITROGEN 12 mg/dL (7-20); CARBON DIOXIDE 22 mmol/L (22-30); CHLORIDE 108 mmol/L (98-107); GLUCOSE 80 mg/dL (75-110); LIPASE 19.5 U/L (23-300); POTASSIUM 3.7 mmol/L (3.6-5.0); SODIUM 141.5 mmol/L (137-145); TOTAL PROTEIN 6.9 g/dL (6.3-8.2)
[2017-09-06 01:13] LABS: APPEARANCE,URINE SLIGHTLY-CLOUDY; BILIRUBIN,URINE NEGATIVE (NEGATIVE); COLOR,URINE YELLOW; GLUCOSE, URINE NEGATIVE (NEGATIVE); KETONES,URINE NEGATIVE (NEGATIVE); LEUKOCYTE ESTERASE,URINE MODERATE (NEGATIVE); NITRITE,URINE NEGATIVE (NEGATIVE); PROTEIN,URINE 30 mg/dL (NEGATIVE); URINE SPECIFIC GRAVITY 1.025; UROBILINOGEN,URINE NEGATIVE mg/dL (<2.0)
--- NOTE | 2017-09-06 01:17 | ER Document Report ---
ED GI/ - General Chief Complaint: Abdominal Pain Stated Complaint: ABDOMINAL PAIN Time Seen by Provider: 09/06/17 00:23 Mode of Arrival: Ambulatory Notes: Patient is a 37-year-old female that comes emergency department for chief complaint of abdominal pain on both sides but worse on the left since April. She states that pain is every day, if she does not take ibuprofen she continues to feel it, she states the ibuprofen does work but she has to take it every day. She denies fever chills, nausea vomiting. She does have some vaginal discharge but she states she was just treated for potential PID 3 weeks ago and was treated before that as well. She denies dysuria, fever or chills, nausea or vomiting. She states she eats and has bowel movements normally. Past medical history of fallopian tube removal, tubal ligation, . Denies any daily medications. LMP within the past month. TRAVEL OUTSIDE OF THE [place] IN LAST 30 DAYS: No - Related Data Allergies/Adverse Reactions: No Known Drug Allergies Allergy (Verified 06/22/17 10:42) Past Medical History - General Information source: Patient - Social History Smoking Status: Current Every Day Smoker Frequency of alcohol use: None Drug Abuse: None Lives with: Family Family History: Arthritis, Hyperlipidemia. denies: CAD - atrial fib Patient has suicidal ideation: No Patient has homicidal ideation: No - Past Medical History Cardiac Medical History: Reports: Hx Hypercholesterolemia Denies: Hx Hypertension Pulmonary Medical History: Denies: Hx Asthma, Hx Bronchitis Renal/ Medical History: Denies: Hx Peritoneal Dialysis Musculoskeletal Medical History: Denies Hx Arthritis, Denies Hx Musculoskeletal Deformity, Denies Hx Musculoskeletal Trauma Traumatic Medical History: Denies: Hx Fractures Past Surgical History: Reports: Hx Abdominal Surgery - umbilical hernia, Hx Section - 2, Hx Tubal Ligation, Hx Umbilical Hernia - Immunizations Immunizations up to date: Yes Hx Diphtheria, Pertussis, Tetanus Vaccination: Yes Review of Systems - Review of Systems Constitutional: No symptoms reported EENT: No symptoms reported Cardiovascular: No symptoms reported Respiratory: No symptoms reported Gastrointestinal: See HPI Genitourinary: No symptoms reported Female Genitourinary: No symptoms reported Musculoskeletal: No symptoms reported Skin: No symptoms reported Hematologic/Lymphatic: No symptoms reported Neurological/Psychological: No symptoms reported Physical Exam - Vital signs Vitals: Temp Pulse Resp BP Pulse Ox 98.4 F 76 18 184/118 H 99 09/05/17 23:30 09/05/17 23:30 09/05/17 23:30 09/05/17 23:30 09/05/17 23:30 - Notes Notes: GENERAL: Alert, interacts well. No acute distress. HEAD: Normocephalic, atraumatic. EYES: Pupils equal, round, and reactive to light. Extraocular movements intact. ENT: Oral mucosa moist, tongue midline. NECK: Full range of motion. Supple. Trachea midline. LUNGS: Clear to auscultation bilaterally, no wheezes, rales, or rhonchi. No respiratory distress. HEART: Regular rate and rhythm. No murmur ABDOMEN: Tenderness in the general lower abdomen, no specific area of guarding, no rigidity, no rebound tenderness. Non-distended. Bowel sounds present in all 4 quadrants. EXTREMITIES: Moves all 4 extremities spontaneously. No edema, normal radial and dorsalis pedis pulses bilaterally. No cyanosis. BACK: no cervical, thoracic, lumbar midline tenderness. No saddle anesthesia, normal distal neurovascular exam. NEUROLOGICAL: Alert and oriented x3. Normal speech. [cranial nerves II through XII grossly intact]. PSYCH: Normal affect, normal mood. SKIN: Warm, dry, normal turgor. No rashes or lesions noted. Course - Re-evaluation Re-evalutation: Patient alert and well-appearing. She has generalized lower abdominal tenderness, defers a pelvic exam. Urinalysis shows evidence of bladder infection, CBC, chemistry generally unremarkable. Reviewed CAT scan performed from triage, this shows left-sided ovarian cyst at less than 5 cm, scan does not recommend any follow-up imaging. Patient's presentation does not suggest torsion, there is no significant tenderness, she is alert, smiling, well- appearing, no vomiting, no severe pain, pain ongoing for a long time now. Discussed treatment of ovarian cysts, follow-up with ORDNANCE MECHANIC, and return precautions for signs of torsion. Patient states understanding and agreement with plan. - Vital Signs Vital signs: Temp Pulse Resp BP Pulse Ox 98.4 F 84 17 145/87 H 99 09/05/17 23:30 09/06/17 03:29 09/06/17 03:29 09/06/17 03:29 09/05/17 23:30 - Laboratory Result Diagrams: 09/05/17 23:55 09/05/17 23:55 Laboratory results interpreted by me: 09/05/17 09/05/17 09/05/17 23:55 23:55 23:55 Hgb 11.3 L Hct 34.8 L RDW 14.9 H Chloride 108 H Lipase 19.5 L Urine Protein 30 H Urine Blood SMALL H Ur Leukocyte Esterase MODERATE H Discharge - Discharge Clinical Impression: Left lower quadrant pain, Lower abdominal pain Condition: Stable Disposition: HOME, SELF-CARE Additional Instructions: Your imaging shows a left-sided ovarian cyst that is just over 4.5 x 3.5 centimeters. He also have what appears to be a bladder infection. These are probably the cause of your symptoms. Take Keflex antibiotics to completion for bladder infection, only take the pain medicine given tonight if needed for sleep , take the ketorolac prescribed if needed for pain as well. Follow-up with OB/ TECHNICAL SUPPORT ASSOCIATE for additional evaluation and management of her ovarian cyst. Return for any concerning symptoms including severe pain, vomiting, fever of 100.4 or greater, or any other concerning or worsening symptoms. Prescriptions: Ketorolac Tromethamine [Toradol 10 mg Tablet] 10 mg PO Q8HP PRN #30 tablet PRN Reason: Referrals: [facility] [Provider Group] - Follow up as needed
--- NOTE | 2017-09-06 02:00 | RADIOLOGY REPORT (SQ) ---
EXAM DESCRIPTION: CT ABDOMEN PELVIS WITH IV CONTRAST COMPLETED DATE/TME: 09/06/2017 00:24 CLINICAL HISTORY: 37 years, Female, LLQ pain COMPARISON: None. TECHNIQUE: Axial CT images of the abdomen and pelvis were obtained after the demonstration of IV contrast. Sagittal and coronal reformats were performed. FORMERLY [facility], [facility] 1959 Images stored on PACS. All CT scanners at this facility use dose modulation, iterative reconstruction, and/or weight based dosing when appropriate to reduce radiation dose to as low as reasonably achievable (ALARA). [facility]: Dose Right [facility]: CareDose [facility]: Dose Right [facility]: Teradose 4D [facility]: Smart [employer] LIMITATIONS: None. FINDINGS: Lung bases are clear. The liver, gallbladder, pancreas, spleen, adrenal glands, and kidneys appear unremarkable. There is no evidence of hydronephrosis or hydroureter. There is no intraperitoneal free air. There is a mild amount of free fluid. There is no lymphadenopathy. The abdominal aorta appears unremarkable. The stomach, small bowel, and appendix appear unremarkable. The colon appears unremarkable. The uterus and urinary bladder are unremarkable. There is a left ovarian cyst that measures 4.6 x 3.7 cm, which is almost certainly benign. No follow-up imaging recommended. There are no lytic or blastic bone lesions IMPRESSION: No acute findings. TECHNICAL DOCUMENTATION: Quality ID # 436: Final reports with documentation of one or more dose reduction techniques (e.g., Automated exposure control, adjustment of the mA and/or kV according to patient size, use of iterative reconstruction technique) 2010 [employer]- All Rights Reserved
[2017-09-06] MEDS ORDERED: HYDROCODONE/ACETAMINOPHEN 5-325 MG (6 TAB/ER DISP) PO PRN (02:54)
[2017-09-06] MEDS ORDERED: CEPHALEXIN 500 MG CAPSULE PO ONE (02:54)
[2017-09-06 03:30] VITALS: BP 145/87
== END 2017-09-06 03:31 | disposition home or self-care (01) ==
LOC: ER 22:49
DX: N83.202 Unspecified ovarian cyst, left side (principal); N30.90 Cystitis, unspecified without hematuria; R10.32 Left lower quadrant pain; N89.8 Other specified noninflammatory disorders of vagina; F17.200 Nicotine dependence, unspecified, uncomplicated
CPT/HCPCS: 99284; 96361; 96374; 36415; 83690; 85025; 81025; 80053; 81001; 74177; J2270; J7030

== ENCOUNTER 2017-09-20 20:39 | Emergency (ER) | payer OTHER ==
--- NOTE | 2017-09-20 22:23 | ER Document Report ---
ED Medical Screen (RME) - General Chief Complaint: Abdominal Pain Stated Complaint: ABDOMINAL PAIN Time Seen by Provider: 09/20/17 21:56 Mode of Arrival: Ambulatory Information source: Patient Notes: Patient is a 29-year-old female with chief complaint of left lower quadrant pain that started at 11 AM. Patient reports the pain radiates into her pelvis. Patient reports that she has had a history of a large ovarian cyst to this area. Patient reports she was told to return if the pain worsened. Patient reports she has been taking ibuprofen without relief. Patient denies any urinary pain or frequency, denies any abnormal vaginal discharge. Denies any fevers. Exam: Tenderness to palpation to left lower quadrant, no rebound no guarding. I have greeted and performed a rapid initial assessment of this patient. A comprehensive ED assessment and evaluation of the patient, analysis of test results and completion of the medical decision making process will be conducted by additional ED providers. Dictation of this chart was performed using voice recognition software; therefore, there may be some unintended grammatical errors. TRAVEL OUTSIDE OF THE [place] IN LAST 30 DAYS: No - Related Data Allergies/Adverse Reactions: No Known Drug Allergies Allergy (Verified 06/22/17 10:42) Past Medical History - Social History Frequency of alcohol use: None Drug Abuse: None - Past Medical History Cardiac Medical History: Reports: Hx Hypercholesterolemia Denies: Hx Hypertension Pulmonary Medical History: Denies: Hx Asthma, Hx Bronchitis Renal/ Medical History: Denies: Hx Peritoneal Dialysis Musculoskeltal Medical History: Denies Hx Arthritis, Denies Hx Musculoskeletal Deformity, Denies Hx Musculoskeletal Trauma Traumatic Medical History: Denies: Hx Fractures Past Surgical History: Reports: Hx Abdominal Surgery - umbilical hernia, Hx Section - 2, Hx Tubal Ligation, Hx Umbilical Hernia - Immunizations Immunizations up to date: Yes Hx Diphtheria, Pertussis, Tetanus Vaccination: Yes Physical Exam - Vital signs Vitals: Temp Pulse Resp BP Pulse Ox 98.6 F 97 16 148/113 H 98 09/20/17 20:51 09/20/17 20:51 09/20/17 20:51 09/20/17 20:51 09/20/17 20:51 Course - Vital Signs Vital signs: Temp Pulse Resp BP Pulse Ox 98.6 F 97 16 148/113 H 98 09/20/17 20:51 09/20/17 20:51 09/20/17 20:51 09/20/17 20:51 09/20/17 20:51
[2017-09-20 23:23] LABS: ABSOLUTE BASOPHILS # (AUTO) 0.1 10^3/uL (0.0-0.2); ABSOLUTE LYMPHOCYTES (AUTO) 1.9 10^3/uL (0.5-4.7); ABSOLUTE MONOCYTES (AUTO) 0.6 10^3/uL (0.1-1.4); ABSOLUTE NEUT (AUTO) 7.3 10^3/uL (1.7-8.2); BASOPHILS % (AUTO) 0.6 % (0-2); EOSINOPHILS % (AUTO) 0.2 % (0-6); HEMATOCRIT 34.4 % (36.0-47.0); HEMOGLOBIN 11.2 g/dL (12.0-15.5); MEAN CORPUSCULAR HEMOGLOBIN 26.9 pg (27.0-33.4); MEAN CORPUSCULAR HGB CONC 32.7 g/dL (32.0-36.0); MEAN CORPUSCULAR VOLUME 82 fl (80-97); MONOCYTES % (AUTO) 5.8 % (3-13); PLATELET COUNT 470 10^3/uL (150-450); RED BLOOD COUNT 4.17 10^6/uL (3.72-5.28); RED CELL DISTRIBUTION WIDTH 14.6 % (11.5-14.0); SEGMENTED NEUTROPHILS % (AUTO) 74.4 % (42-78); TOTAL CELLS COUNTED % (AUTO) 100 %; WHITE BLOOD COUNT 9.8 10^3/uL (4.0-10.5)
[2017-09-20 23:33] LABS: ALANINE AMINOTRANSFERASE 19 U/L (9-52); ALBUMIN 3.9 g/dL (3.5-5.0); ALKALINE PHOSPHATASE 64 U/L (38-126); ANION GAP 15 (5-19); ASPARTATE AMINO TRANSFERASE 18 U/L (14-36); BILIRUBIN,DIRECT 0.3 mg/dL (0.0-0.4); BILIRUBIN,TOTAL 0.3 mg/dL (0.2-1.3); BLOOD UREA NITROGEN 13 mg/dL (7-20); CALCIUM 9.6 mg/dL (8.4-10.2); CARBON DIOXIDE 23 mmol/L (22-30); CHLORIDE 105 mmol/L (98-107); GLUCOSE 123 mg/dL (75-110); LIPASE 25.5 U/L (23-300); POTASSIUM 3.7 mmol/L (3.6-5.0); SODIUM 142.5 mmol/L (137-145); TOTAL PROTEIN 7.6 g/dL (6.3-8.2)
--- NOTE | 2017-09-21 00:54 | RADIOLOGY REPORT (SQ) ---
EXAM DESCRIPTION: US PELVIS COMPLETED DATE/TME: 09/20/2017 22:02 CLINICAL HISTORY: 37 years, Female, right ovarian cyst. COMPARISON: 09/06/2017 and 07/30/2017 TECHNIQUE: Complete pelvic ultrasound with transvaginal and transabdominal. Limited color and spectral Doppler imaging of the ovaries. LIMITATIONS: None. FINDINGS: The uterus measures 11.6 x 5.8 x 5.1 cm. Endometrial thickness of 1.2 cm. Cervical length of 3.8 cm and closed. Fluid within the endometrial canal. No myometrial abnormalities. The right ovary measures 2.6 x 2.0 x 2.3 cm. No dominant follicle identified in the right ovary. The left ovary measures 3.7 x 2.2 x 2.8 cm. Limited color and spectral Doppler imaging demonstrates flow within the ovaries bilaterally. No free pelvic fluid. No large adnexal masses. IMPRESSION: 1. Fluid identified in the endometrial canal. This could be related to cervical stenosis or obstructing endometrial lesion such as polyp or hyperplasia. 2. No other sonographic abnormality identified in the pelvis. 2011 [employer]- All Rights Reserved
[2017-09-21 02:03] LABS: APPEARANCE,URINE CLOUDY; BILIRUBIN,URINE NEGATIVE (NEGATIVE); COLOR,URINE YELLOW; GLUCOSE, URINE NEGATIVE (NEGATIVE); KETONES,URINE 80 mg/dL (NEGATIVE); LEUKOCYTE ESTERASE,URINE LARGE (NEGATIVE); NITRITE,URINE NEGATIVE (NEGATIVE); PROTEIN,URINE 100 mg/dL (NEGATIVE); URIC ACID CRYSTALS,URINE FEW /HPF; URINE SPECIFIC GRAVITY 1.028; UROBILINOGEN,URINE NEGATIVE mg/dL (<2.0)
[2017-09-21] MEDS ORDERED: LIDOCAINE 1% INJ-PF (10 MG/ML) 30 ML SDV INFIL ONE (02:31)
[2017-09-21] MEDS ORDERED: CEFTRIAXONE INJ 1000 MG VIAL IM ONE (02:31)
[2017-09-21] MEDS ORDERED: HYDROCODONE/ACETAMINOPHEN 5-325 MG (6 TAB/ER DISP) PO PRN (02:32)
--- NOTE | 2017-09-21 02:34 | ER Document Report ---
ED General - General Chief Complaint: Abdominal Pain Stated Complaint: ABDOMINAL PAIN Time Seen by Provider: 09/20/17 21:56 Mode of Arrival: Ambulatory Notes: Patient is a 29-year-old female presents with complaint of lower abdominal and pelvic pain. Patient points to her pubic region says that this is where the pain is. Patient was seen here for similar pain about a week and a half ago. States that she has had some urinary frequency without dysuria. No blood in her urine. No fevers. No vomiting. No abnormal vaginal discharge or bleeding. Patient actually denies any chance that she could have a sexually transmitted disease. TRAVEL OUTSIDE OF THE [place] IN LAST 30 DAYS: No - Related Data Allergies/Adverse Reactions: No Known Drug Allergies Allergy (Verified 06/22/17 10:42) Past Medical History - General Information source: Patient - Social History Smoking Status: Current Every Day Smoker Frequency of alcohol use: None Drug Abuse: None Family History: Arthritis, Hyperlipidemia. denies: CAD - atrial fib Patient has suicidal ideation: No Patient has homicidal ideation: No - Past Medical History Cardiac Medical History: Reports: Hx Hypercholesterolemia Denies: Hx Hypertension Pulmonary Medical History: Denies: Hx Asthma, Hx Bronchitis Renal/ Medical History: Denies: Hx Peritoneal Dialysis Musculoskeletal Medical History: Denies Hx Arthritis, Denies Hx Musculoskeletal Deformity, Denies Hx Musculoskeletal Trauma Traumatic Medical History: Denies: Hx Fractures Past Surgical History: Reports: Hx Abdominal Surgery - umbilical hernia, Hx Section - 2, Hx Tubal Ligation, Hx Umbilical Hernia - Immunizations Immunizations up to date: Yes Hx Diphtheria, Pertussis, Tetanus Vaccination: Yes Review of Systems - Review of Systems Notes: My Normal Review Basic REVIEW OF SYSTEMS: CONSTITUTIONAL : Denies fever, chills, or sweats. Denies recent illness. RESPIRATORY: Denies cough, cold, or chest congestion. Denies shortness of breath, difficulty breathing, or wheezing. GASTROINTESTINAL: Lower abdominal pain. Denies nausea, vomiting, or diarrhea. GENITOURINARY: No frequency. No dysuria. FEMALE GENITOURINARY: Denies vaginal bleeding, abnormal or irregular periods. MUSCULOSKELETAL: Denies neck or back pain or joint pain or swelling. SKIN: Denies rash or skin lesions. NEUROLOGICAL: Denies altered mental status or loss of consciousness. Denies headache. Denies weakness or paralysis or loss of use of either side. Denies problems with gait or speech. Denies sensory or motor loss. ALL OTHER SYSTEMS REVIEWED AND NEGATIVE. Physical Exam - Vital signs Vitals: Temp Pulse Resp BP Pulse Ox 98.6 F 97 16 148/113 H 98 09/20/17 20:51 09/20/17 20:51 09/20/17 20:51 09/20/17 20:51 09/20/17 20:51 - Notes Notes: General Appearance: Well nourished, alert, cooperative, no acute distress, no obvious discomfort. Well-appearing. Vitals: reviewed, See vital signs table. Head: no swelling or tenderness to the head Eyes: PERRL, EOMI, Conjuctiva clear Mouth: No decreasd moisture Lungs: No wheezing, No rales, No rhonci, No accessory muscle use, good air exchange bilaterally. Heart: Normal rate, Regular rythm, No murmur, no rub Abdomen: Normal BS, soft, No rigidity, pain to palpation around the pubic area just left to the left pelvic region., No guarding, no rebound, no abdominal masses, no organomegaly Extremities: strength 5/5 in all extremities, good pulses in all extremities, no swelling or tenderness in the extremities, no edema. Skin: warm, dry, appropriate color, no rash Neuro: speech clear, oriented x 3, normal affect, responds appropriately to questions. Course - Re-evaluation Re-evalutation: 09/21/17 06:20 Patient's pain is in the lower abdomen and pelvis region. Informed her my concern that this could possibly be a pelvic type infection but patient adamantly denies any chance that she could have a pelvic infection does not want a pelvic exam at this time. She has upcoming appointment with her prevention coordinator. I did print off a copy of her ultrasound report and told her to take it with her to her gynecology appointment so that they can review it and do further workup as needed. I informed her to return to ER immediately if she has any fevers or vomiting or worsening pain. I will treat her for possible UTI. Patient agrees with plan will be discharged home. Dictation of this chart was performed using voice recognition software; therefore, there may be some unintended grammatical errors. - Vital Signs Vital signs: Temp Pulse Resp BP Pulse Ox 97.6 F 71 22 H 150/92 H 99 09/21/17 02:50 09/21/17 02:50 09/21/17 02:50 09/21/17 02:50 09/21/17 02:50 - Laboratory Result Diagrams: 09/20/17 22:41 09/20/17 22:41 Laboratory results interpreted by me: 09/20/17 09/20/17 09/20/17 22:41 22:41 22:41 Hgb 11.2 L Hct 34.4 L MCH 26.9 L RDW 14.6 H Plt Count 470 H Glucose 123 H Urine Protein 100 H Urine Ketones 80 H Urine Blood MODERATE H Ur Leukocyte Esterase LARGE H Discharge - Discharge Clinical Impression: Abdominal pain Qualifiers: Abdominal location: lower abdomen, unspecified Qualified Code(s): R10.30 - Lower abdominal pain, unspecified UTI (urinary tract infection) Qualifiers: Urinary tract infection type: site unspecified Hematuria presence: with hematuria Qualified Code(s): N39.0 - Urinary tract infection, site not specified Condition: Good Disposition: HOME, SELF-CARE Instructions: Oral Narcotic Medication ([facility]) Additional Instructions: Your ultrasound shows some hyperplasia in the endometrial canal. This needs to be reevaluated by your prevention coordinator. Please take your ultrasound report with you to your appointment for them to review. You have evidence of urinary tract infection. We have given you a dose of antibiotics here and will continue on antibiotics. Please take antibiotics as prescribed. Please return to ER immediately if you have fevers, worsening pain, abnormal vaginal discharge, or if you feel unwell. Prescriptions: Cephalexin Monohydrate [Keflex 500 mg Capsule] 500 mg PO BID 5 Days #10 capsule Hydrocodone/Acetaminophen [[place] 5-325 mg Tablet] 1 tab PO Q4 PRN #10 tablet PRN Reason: For Breakthrough Pain Forms: Return to Work
[2017-09-21 02:52] VITALS: BP 150/92
== END 2017-09-21 03:09 | disposition home or self-care (01) ==
LOC: ER 20:39
DX: N39.0 Urinary tract infection, site not specified (principal); R10.30 Lower abdominal pain, unspecified; R10.2 Pelvic and perineal pain; F17.200 Nicotine dependence, unspecified, uncomplicated; E78.00 Pure hypercholesterolemia, unspecified; Z98.51 Tubal ligation status
CPT/HCPCS: 99284; 96372; 36415; 83690; 85025; 81025; 80053; 81001; 76830; 93976; J3490; J0696

== ENCOUNTER 2017-12-22 18:47 | Emergency (ER) | payer OTHER ==
[2017-12-22 19:03] VITALS: BP 144/88
[2017-12-22] MEDS ORDERED: ONDANSETRON HCL INJ/PF 4 MG/2 ML SDV IV ONE (19:34)
[2017-12-22] MEDS ORDERED: NORMAL SALINE 1000 ML 1,000 ML IV ONE (19:34)
[2017-12-22 19:52] LABS: ABSOLUTE BASOPHILS # (AUTO) 0.1 10^3/uL (0.0-0.2); ABSOLUTE EOSINOPHILS # (AUTO) 0.1 10^3/uL (0.0-0.6); ABSOLUTE LYMPHOCYTES (AUTO) 2.1 10^3/uL (0.5-4.7); ABSOLUTE MONOCYTES (AUTO) 1.1 10^3/uL (0.1-1.4); ABSOLUTE NEUT (AUTO) 8.6 10^3/uL (1.7-8.2); EOSINOPHILS % (AUTO) 0.6 % (0-6); HEMATOCRIT 22.6 % (36.0-47.0); LYMPHOCYTES % (AUTO) 17.9 % (13-45); MEAN CORPUSCULAR HEMOGLOBIN 22.7 pg (27.0-33.4); MEAN CORPUSCULAR VOLUME 71 fl (80-97); MONOCYTES % (AUTO) 9.3 % (3-13); PLATELET COUNT 716 10^3/uL (150-450); RED BLOOD COUNT 3.19 10^6/uL (3.72-5.28); RED CELL DISTRIBUTION WIDTH 17.4 % (11.5-14.0); SEGMENTED NEUTROPHILS % (AUTO) 71.2 % (42-78); TOTAL CELLS COUNTED % (AUTO) 100 %
[2017-12-22 19:56] LABS: HEMOGLOBIN 7.2 g/dL (12.0-15.5)
[2017-12-22 20:18] LABS: ALANINE AMINOTRANSFERASE 22 U/L (9-52); ALBUMIN 3.4 g/dL (3.5-5.0); ALKALINE PHOSPHATASE 95 U/L (38-126); ANION GAP 12 (5-19); ASPARTATE AMINO TRANSFERASE 33 U/L (14-36); BILIRUBIN,DIRECT 0.1 mg/dL (0.0-0.4); BILIRUBIN,TOTAL 0.3 mg/dL (0.2-1.3); BLOOD UREA NITROGEN 12 mg/dL (7-20); CALCIUM 9.3 mg/dL (8.4-10.2); CARBON DIOXIDE 25 mmol/L (22-30); CHLORIDE 104 mmol/L (98-107); GLUCOSE 106 mg/dL (75-110); LIPASE 15.9 U/L (23-300); TOTAL PROTEIN 8.3 g/dL (6.3-8.2)
[2017-12-22 21:17] LABS: APPEARANCE,URINE CLEAR; BILIRUBIN,URINE NEGATIVE (NEGATIVE); COLOR,URINE STRAW; GLUCOSE, URINE NEGATIVE (NEGATIVE); KETONES,URINE NEGATIVE (NEGATIVE); LEUKOCYTE ESTERASE,URINE SMALL (NEGATIVE); NITRITE,URINE NEGATIVE (NEGATIVE); PROTEIN,URINE NEGATIVE (NEGATIVE); URINE SPECIFIC GRAVITY 1.009; UROBILINOGEN,URINE NEGATIVE mg/dL (<2.0)
[2017-12-22] MEDS ORDERED: METOCLOPRAMIDE HCL INJ/PF 10 MG/2 ML SDV IV ONE (21:45)
--- NOTE | 2017-12-22 22:25 | ER Document Report ---
ED GI/ - General Chief Complaint: Vomiting/Diarrhea Stated Complaint: VOMITING, DIARRHEA Time Seen by Provider: 12/22/17 19:33 Notes: Patient is a 37-year-old female presenting to the emergency department complaining of vomiting x3 nonbloody and diarrhea x3 also nonbloody since 1300 hrs. this afternoon. Patient denies any fever, dysuria, vaginal discharge, abdominal pain. Patient states she tried to take Pepto-Bismol but then vomited after. Patient states 2 weeks ago she was diagnosed with cervical cancer by Dr. Combs at [facility] in [place]. Patient states she was having excessively heavy periods and breakthrough bleeding which is why she presented to the OB/ AIRPORT MANAGER. Patient states that HEATING AND REFRIGERATION INSPECTOR Dr. Combs told her that her hemoglobin was 7 at that time and started her on iron infusions. Patient states she has an appointment with Dr. Combs on Wednesday to figure out the treatment plan for her cervical cancer. Patient denies lightheadedness, dizziness, headache, weakness, chest pain, shortness of breath. Past medical history: Cervical cancer, hypertension Medications: Vitamin D, iron, clonidine Allergies: None Surgical history: , umbilical hernia repair, ectopic with fallopian tube removal. Patient denies cigarette smoking, denies EtOH use, denies illicit drug use. TRAVEL OUTSIDE OF THE [place] IN LAST 30 DAYS: No - Related Data Allergies/Adverse Reactions: No Known Drug Allergies Allergy (Verified 12/22/17 18:48) Past Medical History - General Information source: Patient - Social History Smoking Status: Former Smoker Lives with: Family Family History: Arthritis, Hyperlipidemia. denies: CAD - atrial fib Patient has suicidal ideation: No Patient has homicidal ideation: No - Past Medical History Cardiac Medical History: Reports: Hx Hypercholesterolemia Denies: Hx Hypertension Pulmonary Medical History: Denies: Hx Asthma, Hx Bronchitis Renal/ Medical History: Denies: Hx Peritoneal Dialysis Musculoskeletal Medical History: Denies Hx Arthritis, Denies Hx Musculoskeletal Deformity, Denies Hx Musculoskeletal Trauma Traumatic Medical History: Denies: Hx Fractures Past Surgical History: Reports: Hx Abdominal Surgery - umbilical hernia, Hx Section - 2, Hx Tubal Ligation, Hx Umbilical Hernia - Immunizations Immunizations up to date: Yes Hx Diphtheria, Pertussis, Tetanus Vaccination: Yes Review of Systems - Review of Systems Constitutional: denies: Fever EENT: No symptoms reported Cardiovascular: See HPI Respiratory: See HPI Gastrointestinal: See HPI Genitourinary: See HPI Female Genitourinary: See HPI Musculoskeletal: No symptoms reported Skin: No symptoms reported Hematologic/Lymphatic: See HPI Neurological/Psychological: See HPI Physical Exam - Vital signs Vitals: Temp Pulse Resp BP Pulse Ox 98.3 F 102 H 20 144/88 H 97 12/22/17 19:01 12/22/17 19:01 12/22/17 19:01 12/22/17 19:01 12/22/17 19:01 - Notes Notes: GENERAL: Alert, interacts well. No acute distress. Nontoxic, smiling and laughing with staff. HEAD: Normocephalic, atraumatic. EYES: Pupils equal, round, and reactive to light. Extraocular movements intact. ENT: Oral mucosa moist, tongue midline. NECK: Full range of motion. Supple. Trachea midline. LUNGS: Clear to auscultation bilaterally, no wheezes, rales, or rhonchi. No respiratory distress. HEART: Regular rate and rhythm. No murmur ABDOMEN: Soft, non-tender. Non-distended. Bowel sounds present in all 4 quadrants. No McBurney's point tenderness, no Storey sign. EXTREMITIES: Moves all 4 extremities spontaneously. No edema, normal radial and dorsalis pedis pulses bilaterally. No cyanosis. BACK: no cervical, thoracic, lumbar midline tenderness. No saddle anesthesia, normal distal neurovascular exam. No CVA tenderness bilaterally NEUROLOGICAL: Alert and oriented x3. Normal speech. cranial nerves II through XII grossly intact. PSYCH: Normal affect, normal mood. SKIN: Warm, dry, normal turgor. No rashes or lesions noted. Course - Re-evaluation Re-evalutation: 12/22/17 20:[address] Combs at [facility]. Transfer line at that facility stated they do not know the name of Dr. Combs in HE[facility] AND REFRIGERATION INSPECTOR or oncology. Discussed this with patient at bedside and she states the voicemail she recently received was from a Dr. Combs. Discussed at length patient's hemoglobin values in the emergency room at bedside. Patient states she knows that her hemoglobin was at 7 last time she was to Dr. Combs. Continues to be without weakness, lightheadedness, dizziness, shortness of breath, weakness. Patient has not vomited nor has she had any diarrhea since arrival to the emergency room. Patient states she was able to "drink a little bit of lemonade. " Patient states she does still feel a little bit nauseated. Will attempt Reglan. After Reglan administration patient states she no longer feels nauseated. She continues without abdominal pain. Again discussed patient's lab results with her at bedside and close return precautions. Discussed case with Dr. Butterfield who stated that if the Pt. was already aware of her Hgb of 7 and is being treated and asymptomatic there are no other treatments at this time. Recommend discussing with the patient close return precautions for anemia. Again discussed at patient bedside need to return to the emergency room for weakness, dizziness, lightheadedness, shortness of breath, chest pain or any other concerning symptoms. Discussed calling Dr. Combs tomorrow to move up her appointment from Wednesday. - Vital Signs Vital signs: Temp Pulse Resp BP Pulse Ox 98.3 F 102 H 20 144/88 H 97 12/22/17 19:01 12/22/17 19:01 12/22/17 19:01 12/22/17 19:01 12/22/17 19:01 - Laboratory Result Diagrams: 12/22/17 19:39 12/22/17 19:39 Laboratory results interpreted by me: 12/22/17 12/22/17 12/22/17 19:39 19:39 20:35 WBC 12.0 H RBC 3.19 L Hgb 7.2 L Hct 22.6 L MCV 71 L MCH 22.7 L RDW 17.4 H Plt Count 716 H Absolute Neutrophils 8.6 H Total Protein 8.3 H Albumin 3.4 L Lipase 15.9 L Urine Blood MODERATE H Ur Leukocyte Esterase SMALL H Discharge - Discharge Clinical Impression: Vomiting and diarrhea Anemia Qualifiers: Anemia type: unspecified type Qualified Code(s): D64.9 - Anemia, unspecified Condition: Stable Disposition: HOME, SELF-CARE Instructions: Reglan ([facility]), Vomiting ([facility]), Diarrhea, Nonspecific ([facility]), Antinausea Medication ([facility]) Additional Instructions: As we discussed you should return to the emergency room should you get lightheaded, dizzy, short of breath, weak at any point in time. Your hemoglobin is low at this time. You should take prescription medications as prescribed for nausea vomiting and try to stay well-hydrated. Please call Dr. Combs tomorrow to try and move up your appointment. Please return to the emergency room for any other concerning symptoms. Prescriptions: Ondansetron [Zofran Odt 4 mg Tablet] 1 - 2 tab PO Q4H PRN #15 tab.rapdis PRN Reason: For Nausea/Vomiting
== END 2017-12-22 22:50 | disposition home or self-care (01) ==
LOC: ER 18:47
DX: R11.2 Nausea with vomiting, unspecified (principal); R19.7 Diarrhea, unspecified; D64.9 Anemia, unspecified; C53.9 Malignant neoplasm of cervix uteri, unspecified; I10 Essential (primary) hypertension; Z79.899 Other long term (current) drug therapy; Z87.891 Personal history of nicotine dependence
CPT/HCPCS: 99284; 96361; 96374; 96375; 36415; 83690; 85025; 81025; 80053; 81001; J2765; J2405; J7030

== ENCOUNTER 2018-01-07 21:10 | Emergency (ER) | payer OTHER ==
[2018-01-07 22:25] LABS: ABSOLUTE BASOPHILS # (AUTO) 0.1 10^3/uL (0.0-0.2); ABSOLUTE EOSINOPHILS # (AUTO) 0.1 10^3/uL (0.0-0.6); ABSOLUTE LYMPHOCYTES (AUTO) 2.2 10^3/uL (0.5-4.7); ABSOLUTE NEUT (AUTO) 9.6 10^3/uL (1.7-8.2); BASOPHILS % (AUTO) 1.1 % (0-2); EOSINOPHILS % (AUTO) 0.8 % (0-6); HEMATOCRIT 23.5 % (36.0-47.0); LYMPHOCYTES % (AUTO) 17.1 % (13-45); MEAN CORPUSCULAR HEMOGLOBIN 21.3 pg (27.0-33.4); MEAN CORPUSCULAR HGB CONC 31.4 g/dL (32.0-36.0); MEAN CORPUSCULAR VOLUME 68 fl (80-97); MONOCYTES % (AUTO) 7.8 % (3-13); PLATELET COUNT 953 10^3/uL (150-450); RED BLOOD COUNT 3.46 10^6/uL (3.72-5.28); RED CELL DISTRIBUTION WIDTH 18.4 % (11.5-14.0); SEGMENTED NEUTROPHILS % (AUTO) 73.2 % (42-78); TOTAL CELLS COUNTED % (AUTO) 100 %
[2018-01-07 22:26] LABS: APPEARANCE,URINE SLIGHTLY-CLOUDY; BILIRUBIN,URINE NEGATIVE (NEGATIVE); COLOR,URINE YELLOW; GLUCOSE, URINE NEGATIVE (NEGATIVE); KETONES,URINE NEGATIVE (NEGATIVE); LEUKOCYTE ESTERASE,URINE MODERATE (NEGATIVE); NITRITE,URINE NEGATIVE (NEGATIVE); PROTEIN,URINE 100 mg/dL (NEGATIVE); URINE SPECIFIC GRAVITY 1.023
[2018-01-07 22:28] LABS: HEMOGLOBIN 7.4 g/dL (12.0-15.5)
[2018-01-07 22:41] LABS: ALANINE AMINOTRANSFERASE 41 U/L (9-52); ALBUMIN 3.4 g/dL (3.5-5.0); ALKALINE PHOSPHATASE 136 U/L (38-126); ANION GAP 12 (5-19); ASPARTATE AMINO TRANSFERASE 37 U/L (14-36); BILIRUBIN,DIRECT 0.2 mg/dL (0.0-0.4); BILIRUBIN,TOTAL 0.2 mg/dL (0.2-1.3); BLOOD UREA NITROGEN 12 mg/dL (7-20); CALCIUM 9.6 mg/dL (8.4-10.2); CARBON DIOXIDE 24 mmol/L (22-30); CHLORIDE 105 mmol/L (98-107); GLUCOSE 111 mg/dL (75-110); POTASSIUM 4.5 mmol/L (3.6-5.0); SODIUM 141.1 mmol/L (137-145); TOTAL PROTEIN 8.3 g/dL (6.3-8.2)
[2018-01-08] MEDS ORDERED: NORMAL SALINE 250 ML IV PRN (00:08)
--- NOTE | 2018-01-08 00:32 | ER Document Report ---
ED General - General Chief Complaint: Dizziness Stated Complaint: DIZZYNESS Time Seen by Provider: 01/07/18 22:38 Notes: Patient is a 37-year-old female with a long-standing history of iron deficiency anemia, currently with a chronic blood loss anemia secondary to a recent diagnosis of cervical cancer who presents with 1 month of exertional dyspnea, postural lightheadedness, general fatigue. The patient states that her symptoms have been ongoing for at least one month but have been getting progressively worse over that time. She has been advised that she requires a blood transfusion on several occasions both by her CONTENT MANAGER as well as here in this emergency department and has declined. She has been taking iron supplementation without improvement. Does state that she continues to have scant vaginal bleeding throughout the day. She states that her symptoms got to a point today where she decided she would finally accept a blood transfusion prompting her to come to the emergency department. She denies any new or different symptoms today that prompted a visit to the emergency department. She denies any fever. No abdominal pain. No syncope. No chest pain or shortness of breath. TRAVEL OUTSIDE OF THE [place] IN LAST 30 DAYS: No - Related Data Allergies/Adverse Reactions: No Known Drug Allergies Allergy (Verified 12/22/17 18:48) Past Medical History - General Information source: Patient - Social History Smoking Status: Never Smoker Chew tobacco use (# tins/day): No Frequency of alcohol use: None Drug Abuse: None Lives with: Family Family History: Arthritis, Hyperlipidemia. denies: CAD - atrial fib Patient has suicidal ideation: No Patient has homicidal ideation: No - Past Medical History Cardiac Medical History: Reports: Hx Hypercholesterolemia, Hx Hypertension Pulmonary Medical History: Denies: Hx Asthma, Hx Bronchitis Renal/ Medical History: Denies: Hx Peritoneal Dialysis Musculoskeletal Medical History: Denies Hx Arthritis, Denies Hx Musculoskeletal Deformity, Denies Hx Musculoskeletal Trauma Traumatic Medical History: Denies: Hx Fractures Past Surgical History: Reports: Hx Abdominal Surgery - umbilical hernia, Hx Section - 2, Hx Tubal Ligation, Hx Umbilical Hernia - Immunizations Immunizations up to date: Yes Hx Diphtheria, Pertussis, Tetanus Vaccination: Yes Review of Systems - Review of Systems Notes: Constitutional: Negative for fever. HENT: Negative for sore throat. Eyes: Negative for visual changes. Cardiovascular: Negative for chest pain. Positive for lightheadedness Respiratory: Positive for exertional dyspnea Gastrointestinal: Negative for abdominal pain, vomiting or diarrhea. Genitourinary: Negative for dysuria. Musculoskeletal: Negative for back pain. Skin: Negative for rash. Neurological: Negative for headaches, weakness or numbness. 10 point ROS negative except as marked above and in HPI. Physical Exam - Vital signs Vitals: Temp Pulse Resp BP Pulse Ox 98.8 F 105 H 17 143/87 H 99 01/07/18 21:15 01/07/18 21:15 01/07/18 21:15 01/07/18 21:15 01/07/18 21:15 Interpretation: Tachycardic Notes: PHYSICAL EXAMINATION: GENERAL: Well-appearing, well-nourished and in no acute distress. HEAD: Atraumatic, normocephalic. EYES: Pupils equal round and reactive to light, extraocular movements intact, sclera anicteric, conjunctiva are normal. ENT: nares patent, oropharynx clear without exudates. Moderate dry mucous membranes. NECK: Normal range of motion, supple without lymphadenopathy LUNGS: Breath sounds clear to auscultation bilaterally and equal. No wheezes rales or rhonchi. HEART: Regular rate and rhythm without murmurs ABDOMEN: Soft, nontender, normoactive bowel sounds. No guarding, no rebound. No masses appreciated. EXTREMITIES: Normal range of motion, no pitting or edema. No cyanosis. NEUROLOGICAL: No focal neurological deficits. Moves all extremities spontaneously and on command. PSYCH: Normal mood, normal affect. SKIN: Warm, Dry, normal turgor, no rashes or lesions noted. Course - Re-evaluation Re-evalutation: 01/08/18 00:30 Patient presents with 1 month of progressively worsening lightheadedness, exertional dyspnea and fatigue with a known history of severe anemia secondary to chronic blood loss due to cervical cancer. The patient has previously declined blood transfusions but came tonight stating that she can no longer tolerate the symptoms and is a now amenable to a blood transfusion. Her hemoglobin is 7.4 and given her symptom medic nature it is quite appropriate to administer packed red blood cells. The remainder of her laboratories show findings consistent with chronic iron deficiency anemia but are otherwise unremarkable. She denies dysuria and I suspect that the urinalysis is due to either her cervical malignancy or contamination. She will be transfused 2 units of packed red blood cells in a monitored setting here in the emergency department and then we will plan for discharge home for outpatient follow-up with her CONTENT MANAGER and oncologist as scheduled. Patient is very much so in agreement with this plan has no additional questions or concerns. - Vital Signs Vital signs: Temp Pulse Resp BP Pulse Ox 98.8 F 105 H 24 H 145/98 H 100 01/07/18 21:15 01/07/18 21:15 01/07/18 22:35 01/07/18 22:35 01/07/18 22:35 - Laboratory Result Diagrams: 01/07/18 22:12 01/07/18 22:12 Laboratory results interpreted by me: 01/07/18 01/07/18 01/07/18 22:12 22:12 22:12 WBC 13.0 H RBC 3.46 L Hgb 7.4 L Hct 23.5 L MCV 68 L MCH 21.3 L MCHC 31.4 L RDW 18.4 H Plt Count 953 H Absolute Neutrophils 9.6 H Glucose 111 H AST 37 H Alkaline Phosphatase 136 H Total Protein 8.3 H Albumin 3.4 L Urine Protein Urine Urobilinogen Ur Leukocyte Esterase Crossmatch See Detail 01/07/18 22:12 WBC RBC Hgb Hct MCV MCH MCHC RDW Plt Count Absolute Neutrophils Glucose AST Alkaline Phosphatase Total Protein Albumin Urine Protein 100 H Urine Urobilinogen 2.0 H Ur Leukocyte Esterase MODERATE H Crossmatch Discharge - Discharge Clinical Impression: Chronic blood loss anemia, Exertional dyspnea, Lightheadedness, Symptomatic anemia Condition: Stable Disposition: HOME, SELF-CARE Additional Instructions: You were given 2 units of blood tonight. Please follow-up with your primary OB/ PUBLIC WORKS SUPERVISOR and oncologist regarding today's blood transfusion. Your symptoms should improve after receiving blood today. Please remain on iron supplements as prescribed. Return if you have any symptoms including fever, lightheadedness, pass out, become short of breath, or have any other symptoms that are worrisome to you.
[2018-01-08 08:31] VITALS: BP 143/98
== END 2018-01-08 08:35 | disposition home or self-care (01) ==
LOC: ER 21:10
DX: D50.0 Iron deficiency anemia secondary to blood loss (chronic) (principal); R06.09 Other forms of dyspnea; R42 Dizziness and giddiness; R53.83 Other fatigue; I10 Essential (primary) hypertension
CPT/HCPCS: 99284; 86900; 86901; 36415; 36430; 86850; 85025; 80053; 81001; 86920; P9016

== ENCOUNTER 2018-03-11 17:14 | Emergency (ER) | payer OTHER ==
[2018-03-11] MEDS ORDERED: ONDANSETRON HCL INJ/PF 4 MG/2 ML SDV IV ONE (17:47)
[2018-03-11] MEDS ORDERED: HYDROMORPHONE HCL INJ/PF 2 MG/ML AMPULE IV ONE (17:47)
[2018-03-11] MEDS ORDERED: NORMAL SALINE 1000 ML 1,000 ML IV ONE (17:47)
--- NOTE | 2018-03-11 18:50 | ER Document Report ---
Entered by SHERYL WEST SCRIBE 03/11/18 1806 Acting as scribe for:GABRIEL MCCOY DO ED Medical Screen (RME) - General Chief Complaint: Nausea/Vomiting/Diarrhea Stated Complaint: VOMITING/DIARHEA WITH BLOOD Time Seen by Provider: 03/11/18 17:39 Notes: 38-year-old female with stage II cervical cancer who presents to the emergency department today with complaints of vomiting, diarrhea, and blood streaked bowel movements for one week. Patient states that she has used Zofran and Imodium at home with minimal relief. Patient states her last chemotherapy treatment was 5 days ago and she received radiation therapy today. Patient states this is not a normal reaction for her to have post-radiation or chemo. Patient denies any history of GI bleeds in the past. I have greeted and performed a rapid initial assessment of this patient. A comprehensive ED assessment and evaluation of the patient, analysis of test results, and completion of the medical decision making process will be conducted by additional ED providers. Review of systems: Constitutional: No symptoms reported EENT: No symptoms reported Cardiovascular: No symptoms reported Respiratory: No symptoms reported Gastrointestinal: Diarrhea. Vomiting. Bloody stool. Genitourinary: No symptoms reported Musculoskeletal: No symptoms reported Skin: No symptoms reported Hematologic/Lymphatic: No symptoms reported Neurological/Psychological: No symptoms reported Yes All other systems reviewed and negative PHYSICAL EXAM GENERAL: Alert, interacts well. No acute distress. HEAD: Normocephalic, atraumatic. EYES: Pupils equal, round, and reactive to light. Extraocular movements intact. ENT: Oral mucosa moist, tongue midline. NECK: Full range of motion. Supple. Trachea midline. LUNGS: No respiratory distress. ABDOMEN: Diffuse mild tenderness with palpation EXTREMITIES: Moves all 4 extremities spontaneously. NEUROLOGICAL: Alert and oriented x3. Normal speech. PSYCH: Normal affect, normal mood. SKIN: Warm and dry. TRAVEL OUTSIDE OF THE [place] IN LAST 30 DAYS: No - Related Data Allergies/Adverse Reactions: No Known Drug Allergies Allergy (Verified 03/11/18 17:19) Past Medical History - Social History Chew tobacco use (# tins/day): No Frequency of alcohol use: None Drug Abuse: None - Past Medical History Cardiac Medical History: Reports: Hx Hypercholesterolemia, Hx Hypertension Pulmonary Medical History: Denies: Hx Asthma, Hx Bronchitis Renal/ Medical History: Denies: Hx Peritoneal Dialysis Musculoskeltal Medical History: Denies Hx Arthritis, Denies Hx Musculoskeletal Deformity, Denies Hx Musculoskeletal Trauma Traumatic Medical History: Denies: Hx Fractures Past Surgical History: Reports: Hx Abdominal Surgery - umbilical hernia, Hx Section - 2, Hx Tubal Ligation, Hx Umbilical Hernia - Immunizations Immunizations up to date: Yes Hx Diphtheria, Pertussis, Tetanus Vaccination: Yes Physical Exam - Vital signs Vitals: Temp Pulse Resp BP Pulse Ox 99.3 F 108 H 18 143/86 H 98 03/11/18 17:26 03/11/18 17:26 03/11/18 17:26 03/11/18 17:26 03/11/18 17:26 Course - Vital Signs Vital signs: Temp Pulse Resp BP Pulse Ox 99.3 F 108 H 18 143/86 H 98 03/11/18 17:26 03/11/18 17:26 03/11/18 17:26 03/11/18 17:26 03/11/18 17:26 I personally performed the services described in the documentation, reviewed and edited the documentation which was dictated to the scribe in my presence, and it accurately records my words and actions.
[2018-03-11 19:04] LABS: APPEARANCE,URINE CLEAR; BILIRUBIN,URINE NEGATIVE (NEGATIVE); COLOR,URINE YELLOW; GLUCOSE, URINE NEGATIVE (NEGATIVE); KETONES,URINE NEGATIVE (NEGATIVE); LEUKOCYTE ESTERASE,URINE TRACE (NEGATIVE); NITRITE,URINE NEGATIVE (NEGATIVE); PROTEIN,URINE 30 mg/dL (NEGATIVE); URINE SPECIFIC GRAVITY 1.013
[2018-03-11 19:10] LABS: HEMATOCRIT 22.3 % (36.0-47.0); MEAN CORPUSCULAR HEMOGLOBIN 20.8 pg (27.0-33.4); MEAN CORPUSCULAR HGB CONC 30.3 g/dL (32.0-36.0); MEAN CORPUSCULAR VOLUME 69 fl (80-97); PLATELET COUNT 503 10^3/uL (150-450); RED BLOOD COUNT 3.25 10^6/uL (3.72-5.28); RED CELL DISTRIBUTION WIDTH 23.1 % (11.5-14.0); WHITE BLOOD COUNT 11.7 10^3/uL (4.0-10.5)
[2018-03-11 19:16] LABS: ALANINE AMINOTRANSFERASE 42 U/L (9-52); ALBUMIN 3.2 g/dL (3.5-5.0); ALKALINE PHOSPHATASE 134 U/L (38-126); ANION GAP 9 (5-19); ASPARTATE AMINO TRANSFERASE 24 U/L (14-36); BILIRUBIN,DIRECT 0.4 mg/dL (0.0-0.4); BILIRUBIN,TOTAL 0.5 mg/dL (0.2-1.3); BLOOD UREA NITROGEN 8 mg/dL (7-20); CALCIUM 8.9 mg/dL (8.4-10.2); CARBON DIOXIDE 26 mmol/L (22-30); CHLORIDE 103 mmol/L (98-107); GLUCOSE 96 mg/dL (75-110); POTASSIUM 4.4 mmol/L (3.6-5.0); SODIUM 137.8 mmol/L (137-145); TOTAL PROTEIN 7.1 g/dL (6.3-8.2)
[2018-03-11 19:18] LABS: A TYPE INFLUENZA AG NEGATIVE (NEGATIVE); B INFLUENZA AG NEGATIVE (NEGATIVE)
[2018-03-11 19:33] LABS: ABSOLUTE LYMPHOCYTES# (MANUAL) 0.9 10^3/uL (0.5-4.7); ABSOLUTE MONOCYTES # (MANUAL) 0.5 10^3/uL (0.1-1.4); ABSOLUTE NEUTROPHILS# (MANUAL) 10.3 10^3/uL (1.7-8.2); BASOPHILS % (MANUAL) 0 % (0-2); EOSINOPHILS % (MANUAL) 0 % (0-6); LYMPHOCYTES % (MANUAL) 8 % (13-45); MONOCYTES % (MANUAL) 4 % (3-13); SEGMENTED NEUTROPHILS % (MAN) 88 % (42-78); TOTAL CELLS COUNTED 100
[2018-03-11 19:35] LABS: ANISOCYTOSIS 3+; HYPOCHROMASIA 1+; OVALOCYTES SLIGHT; POIKILOCYTOSIS SLIGHT; POLYCHROMASIA SLIGHT; TARGET CELLS SLIGHT
[2018-03-11 19:36] LABS: PLATELET COMMENT INCREASED
[2018-03-11 19:39] LABS: HEMOGLOBIN 6.7 g/dL (12.0-15.5)
[2018-03-11] MEDS ORDERED: NORMAL SALINE 250 ML IV PRN ×3 (19:48→22:06)
[2018-03-11] MEDS ORDERED: FENTANYL CITRATE INJ/PF 100 MCG/2 ML AMPUL IV ONE (22:06)
--- NOTE | 2018-03-11 22:07 | ER Document Report ---
ED General - General Chief Complaint: Nausea/Vomiting/Diarrhea Stated Complaint: VOMITING/DIARHEA WITH BLOOD Time Seen by Provider: 03/11/18 17:39 Primary Care Provider: [facility] [Outside] - Follow up as needed TRAVEL OUTSIDE OF THE [place] IN LAST 30 DAYS: No - HPI Patient complains to provider of: Rectal bleeding Onset: Other - Is a 38-year-old female presents for evaluation of bright red blood per rectum which began today. She is been being treated for cervical cancer with chemotherapy and then was started on radiation to the pelvis over the last several days going once a day for the last 2 weeks. She had some associated nausea with this today as well prompting her to seek care in the emergency department. Denies fevers, denies chills, denies lightheadedness or diaphoresis chest pain or shortness of breath. - Related Data Allergies/Adverse Reactions: No Known Drug Allergies Allergy (Verified 03/11/18 17:19) Past Medical History - General Information source: Patient - Social History Smoking Status: Smoker,Current Status Unk Chew tobacco use (# tins/day): No Frequency of alcohol use: None Drug Abuse: None Family History: Arthritis, Hyperlipidemia. denies: CAD - atrial fib Patient has suicidal ideation: No Patient has homicidal ideation: No - Past Medical History Cardiac Medical History: Reports: Hx Hypercholesterolemia, Hx Hypertension Pulmonary Medical History: Denies: Hx Asthma, Hx Bronchitis Renal/ Medical History: Denies: Hx Peritoneal Dialysis Musculoskeletal Medical History: Denies Hx Arthritis, Denies Hx Musculoskeletal Deformity, Denies Hx Musculoskeletal Trauma Traumatic Medical History: Denies: Hx Fractures Past Surgical History: Reports: Hx Abdominal Surgery - umbilical hernia, Hx Section - 2, Hx Tubal Ligation, Hx Umbilical Hernia - Immunizations Immunizations up to date: Yes Hx Diphtheria, Pertussis, Tetanus Vaccination: Yes Review of Systems - Review of Systems -: Yes All other systems reviewed and negative Physical Exam - Vital signs Vitals: Temp Pulse Resp BP Pulse Ox 99.3 F 108 H 18 143/86 H 98 03/11/18 17:26 03/11/18 17:26 03/11/18 17:26 03/11/18 17:26 03/11/18 17:26 Interpretation: Tachycardic - General General appearance: Appears well, Alert - HEENT Head: Normocephalic, Atraumatic Eyes: Normal Pupils: PERRL - Respiratory Respiratory status: No respiratory distress Chest status: Nontender Breath sounds: Normal Chest palpation: Normal - Cardiovascular Rhythm: Regular Heart sounds: Normal auscultation Murmur: No - Abdominal Inspection: Normal Distension: No distension Bowel sounds: Normal Tenderness: Tender Organomegaly: No organomegaly - Back Back: Normal, Nontender - Extremities General upper extremity: Normal inspection, Nontender, Normal color, Normal ROM, Normal temperature General lower extremity: Normal inspection, Nontender, Normal color, Normal ROM, Normal temperature, Normal weight bearing. No: Shy's sign - Neurological Neuro grossly intact: Yes Cognition: Normal Orientation: AAOx4 [place] Coma Scale Eye Opening: Spontaneous [place] Coma Scale Verbal: Oriented [place] Coma Scale Motor: Obeys Commands [place] Coma Scale Total: 15 Speech: Normal Motor strength normal: LUE, RUE, LLE, RLE Sensory: Normal - Psychological Associated symptoms: Normal affect, Normal mood - Skin Skin Temperature: Warm Skin Moisture: Dry Skin Color: Normal Course - Re-evaluation Re-evalutation: 38-year-old female with bright red blood per rectum after receiving radiation for the last several days. Her abdominal examination is relatively reassuring, she is having some nausea will plan for administration of antiemetic. She is also noted to have a profoundly diminished hemoglobin hematocrit, she chronically has low hemoglobin hematocrit related to her menses and now is having worse version of as a result of her rectal bleeding. She had 2 units of blood ordered prior to my evaluation. We will plan for the administration of these 2 units of blood. She is been given Zofran IV, the rest of her laboratory evaluation is nondiagnostic as to any obvious underlying cause of her nausea and vomiting. Because of her benign abdominal examination and chronic anemia do not believe she should require hospitalization at this time or further imaging. Current plan is for this patient undergo transfusion, nausea control. She is able tolerate p.o. in the emergency department thereafter, she will be given a prescription for antiemetics in the emergency department and discharged with return precautions and expectant management Was represents more serious underlying cause of her bleeding such as but not limited to upper GI bleed, bowel ischemia, or serious fissure - Vital Signs Vital signs: Temp Pulse Resp BP Pulse Ox 99.1 F 95 17 144/94 H 99 03/12/18 02:55 03/12/18 02:55 03/12/18 02:55 03/12/18 02:55 03/12/18 02:55 - Laboratory Result Diagrams: 03/11/18 18:21 03/11/18 18:21 Laboratory results interpreted by me: 03/11/18 03/11/18 03/11/18 18:21 18:21 18:21 WBC 11.7 H RBC 3.25 L Hgb 6.7 L Hct 22.3 L MCV 69 L MCH 20.8 L MCHC 30.3 L RDW 23.1 H Plt Count 503 H Seg Neuts % (Manual) 88 H Lymphocytes % (Manual) 8 L Abs Neuts (Manual) 10.3 H Alkaline Phosphatase 134 H Albumin 3.2 L Urine Protein 30 H Urine Blood LARGE H Urine Urobilinogen 4.0 H Ur Leukocyte Esterase TRACE H Crossmatch 03/11/18 20:29 WBC RBC Hgb Hct MCV MCH MCHC RDW Plt Count Seg Neuts % (Manual) Lymphocytes % (Manual) Abs Neuts (Manual) Alkaline Phosphatase Albumin Urine Protein Urine Blood Urine Urobilinogen Ur Leukocyte Esterase Crossmatch See Detail Discharge - Discharge Clinical Impression: Rectal bleeding, Blood transfusion during current hospitalisation Nausea & vomiting Qualifiers: Vomiting type: unspecified Vomiting Intractability: unspecified Qualified Code(s): R11.2 - Nausea with vomiting, unspecified Anemia Qualifiers: Anemia type: unspecified type Qualified Code(s): D64.9 - Anemia, unspecified Condition: Stable Disposition: HOME, SELF-CARE Instructions: Antinausea Medication ([facility]), Vomiting ([facility]) Additional Instructions: You were seen today in the emergency department for the bleeding from your bowels. You had an evaluation including blood tests and a blood transfusion. Your organ function appears normal, your blood count is low. I think that your bleeding in your bowels is related to your radiation treatment. Make sure you are drinking plenty of fluids and using the nausea medication prescribed to you as needed to make sure you are able to tolerate fluids. You should schedule an appointment this week to be seen by your doctor and probably have a repeat count of your blood, if you begin to have lightheadedness, worsening fevers, abdominal pain which is much worse or if you are unable to eat or drink please come back to the emergency room because it could be a more serious underlying condition. Prescriptions: Ondansetron [Zofran Odt 4 mg Tablet] 1 - 2 tab PO Q4H PRN #15 tab.rapdis PRN Reason: For Nausea/Vomiting Referrals: [facility] [Outside] - Follow up as needed
[2018-03-12] MEDS ORDERED: ONDANSETRON HCL INJ/PF 4 MG/2 ML SDV IV ONE (01:07)
[2018-03-12 04:30] VITALS: BP 144/94
== END 2018-03-12 03:05 | disposition home or self-care (01) ==
LOC: ER 17:14
DX: D64.9 Anemia, unspecified (principal); K62.5 Hemorrhage of anus and rectum; R11.2 Nausea with vomiting, unspecified; R19.7 Diarrhea, unspecified; R00.0 Tachycardia, unspecified; C53.9 Malignant neoplasm of cervix uteri, unspecified; F17.200 Nicotine dependence, unspecified, uncomplicated; E78.00 Pure hypercholesterolemia, unspecified; I10 Essential (primary) hypertension; Z79.899 Other long term (current) drug therapy; Z98.51 Tubal ligation status
CPT/HCPCS: 96375; 99284; 96361; 96374; 86900; 86901; 36415; 36430; 86850; 85025; 80053; 81001; 86920; 87804; P9016; J3010; J1170; J2405 ×2; J7030

== ENCOUNTER 2018-04-20 08:17 | Emergency (ER) | payer OTHER ==
[2018-04-20] MEDS ORDERED: ONDANSETRON HCL INJ/PF 4 MG/2 ML SDV IV ONE (09:24)
[2018-04-20] MEDS ORDERED: NORMAL SALINE 1000 ML 1,000 ML IV ONE (09:24)
[2018-04-20] MEDS ORDERED: HYDROMORPHONE HCL INJ/PF 2 MG/ML AMPULE IV ONE (09:24)
--- NOTE | 2018-04-20 09:30 | ER Document Report ---
ED General - General Chief Complaint: Abdominal Pain Stated Complaint: ABDOMINAL PAIN Time Seen by Provider: 04/20/18 09:23 Primary Care Provider: PINKY NATH [Primary Care Provider] - Follow up as needed Notes: 38-year-old female with history of cervical cancer currently getting radiation and chemotherapy presents to the ER. The patient stated that she began having severe pain in her abdomen last night 10 out of 10 more so on the left lower portion of her abdomen. She had a consistent yellow discharge since this entire episode began in February where she started getting chemo and radiation. The patient denies any chest pain or shortness of breath had some mild nausea. The patient stated she feels terrible. She has had subjective fever and chills. Denies any hematuria or dysuria. TRAVEL OUTSIDE OF THE [place] IN LAST 30 DAYS: No - Related Data Allergies/Adverse Reactions: No Known Drug Allergies Allergy (Verified 04/20/18 08:20) Past Medical History - Social History Smoking Status: Unknown if Ever Smoked Family History: Arthritis, Hyperlipidemia. denies: CAD - atrial fib Patient has suicidal ideation: No Patient has homicidal ideation: No - Past Medical History Cardiac Medical History: Reports: Hx Hypercholesterolemia, Hx Hypertension Pulmonary Medical History: Denies: Hx Asthma, Hx Bronchitis Renal/ Medical History: Denies: Hx Peritoneal Dialysis Musculoskeletal Medical History: Denies Hx Arthritis, Denies Hx Musculoskeletal Deformity, Denies Hx Musculoskeletal Trauma Traumatic Medical History: Denies: Hx Fractures Past Surgical History: Reports: Hx Abdominal Surgery - umbilical hernia, Hx Section - 2, Hx Tubal Ligation, Hx Umbilical Hernia - Immunizations Immunizations up to date: Yes Hx Diphtheria, Pertussis, Tetanus Vaccination: Yes Review of Systems - Review of Systems Constitutional: Chills, Fever Cardiovascular: denies: Chest pain Respiratory: denies: Short of breath Gastrointestinal: Abdominal pain, Nausea, Other - Radiation angeles on the abdomen and genitals. denies: Vomiting Female Genitourinary: Vaginal discharge Musculoskeletal: denies: Muscle stiffness -: Yes All other systems reviewed and negative Physical Exam - Vital signs Vitals: Temp Pulse Resp BP Pulse Ox 98.0 F 96 16 151/108 H 100 04/20/18 08:29 04/20/18 08:29 04/20/18 08:29 04/20/18 08:29 04/20/18 08:29 - Notes Notes: GENERAL_APPEARANCE: well_nourished, alert, cooperative, patient appears very uncomfortable VITALS: reviewed, see vital signs table. HEAD: no_swelling\tenderness on the head. EYES: PERRL, EOMI, conjunctiva_clear. NOSE: no_nasal_discharge. MOUTH: (-)decreased moisture. THROAT: no_tonsilar_inflammation, no_airway_obstruction. no_lymphadenopathy NECK: supple, no_neck_tenderness, (-)thyromegaly. BACK: no_back_tenderness. CHEST_WALL: no_chest_tenderness. LUNGS: no_wheezing, no_rales, no_rhonchi, (-)accessory muscle use, good air exchange bilateral. HEART: normal_rate, normal_rhythm, normal_S1, normal_S2, (-)S3, (-)S4, no_murmur, no_rub. ABDOMEN: normal_BS, soft, suprapubic and left lower quadrant_abd_tenderness, (- )guarding, (-)rebound, no_organomegaly, no_abd_masses. FEMALE : There looks to be radiation angeles on the mons pubis and to the vulva. Patient refuses any attempt pelvic due to severe pain EXTREMITIES: no_swelling\tenderness in the extremities, no_edema. SKIN: warm, dry, good_color, no_rash. MENTAL_STATUS: speech_clear, oriented_X_3, normal_affect, responds_appropriately to questions. Course - Re-evaluation Re-evalutation: 04/20/18 09:30 38-year-old female presents to the ER with severe lower abdominal pain. Patient just finished radiation treatment last week. She has been having chemo. This is all active treatment. Patient's been having discharge since February. The patient refuses any is sent a pelvic she does have what looks to be radiation angeles on the mons pubis and external genitalia. She complains of severe pain from that. She denies any sexual intercourse since last year. Patient denies any hematuria or dysuria. We will scanned the patient's abdomen. Blood work. Pain nausea medicine fluid. 04/20/18 13:11 Urine does show a UTI. CT scan showed only reactive lymph nodes. The patient's etiology of pain is likely due to the inflammation and pain caused by the radiation on the omentum and pelvic organs. The patient has had continuous radiation treatments. I will treat her for the urinary tract infection will place her on some anti-infla mmatories for home. She only has oxycodone for home. She is following up with her oncologist in [place]. Her pain is much improved since she came in. Again I feel this is likely due to her radiation treatments irritating the visceral nerve fibers in the omentum. Similar to adhesions. - Vital Signs Vital signs: Temp Pulse Resp BP Pulse Ox 98.0 F 96 16 142/91 H 100 04/20/18 08:29 04/20/18 08:29 04/20/18 12:00 04/20/18 12:00 04/20/18 12:00 - Laboratory Result Diagrams: 04/20/18 10:10 04/20/18 10:10 Laboratory results interpreted by me: 04/20/18 04/20/18 04/20/18 10:10 10:10 10:10 RBC 3.51 L Hgb 9.0 L Hct 27.2 L MCV 78 L MCH 25.5 L RDW 28.2 H Seg Neuts % (Manual) 81 H Band Neutrophils % 2 L Lymphocytes % (Manual) 5 L Abs Lymphs (Manual) 0.2 L AST 12 L Lipase 12.9 L Urine Protein 30 H Urine Urobilinogen 4.0 H Ur Leukocyte Esterase LARGE H Urine Ascorbic Acid 20 H Discharge - Discharge Clinical Impression: UTI (urinary tract infection) Qualifiers: Urinary tract infection type: acute cystitis Hematuria presence: without hematuria Qualified Code(s): N30.00 - Acute cystitis without hematuria Abdominal pain Qualifiers: Abdominal location: unspecified location Qualified Code(s): R10.9 - Unspecified abdominal pain Condition: Good Disposition: HOME, SELF-CARE Instructions: Abdominal Pain ([facility]), Urinary Tract Infection ([facility]) Prescriptions: Cefuroxime Axetil [Ceftin 500 mg Tablet] 1 tab PO BID #20 tablet Ibuprofen [Motrin 800 mg Tablet] 800 mg PO Q8H PRN #30 tab PRN Reason: [facility]errals: [facility] [Primary [facility] Provider] - Follow up as needed
[2018-04-20 10:38] LABS: HEMATOCRIT 27.2 % (36.0-47.0); MEAN CORPUSCULAR HEMOGLOBIN 25.5 pg (27.0-33.4); MEAN CORPUSCULAR HGB CONC 32.9 g/dL (32.0-36.0); MEAN CORPUSCULAR VOLUME 78 fl (80-97); PLATELET COUNT 188 10^3/uL (150-450); RED BLOOD COUNT 3.51 10^6/uL (3.72-5.28); RED CELL DISTRIBUTION WIDTH 28.2 % (11.5-14.0); WHITE BLOOD COUNT 4.5 10^3/uL (4.0-10.5)
[2018-04-20 10:44] LABS: APPEARANCE,URINE CLOUDY; BILIRUBIN,URINE NEGATIVE (NEGATIVE); COLOR,URINE YELLOW; GLUCOSE, URINE NEGATIVE (NEGATIVE); KETONES,URINE NEGATIVE (NEGATIVE); LEUKOCYTE ESTERASE,URINE LARGE (NEGATIVE); NITRITE,URINE NEGATIVE (NEGATIVE); PROTEIN,URINE 30 mg/dL (NEGATIVE); URINE SPECIFIC GRAVITY 1.026
[2018-04-20 11:05] LABS: ABSOLUTE LYMPHOCYTES# (MANUAL) 0.2 10^3/uL (0.5-4.7); ABSOLUTE MONOCYTES # (MANUAL) 0.5 10^3/uL (0.1-1.4); ABSOLUTE NEUTROPHILS# (MANUAL) 3.7 10^3/uL (1.7-8.2); BAND NEUTROPHILS % (MANUAL) 2 % (3-5); BASOPHILS % (MANUAL) 0 % (0-2); EOSINOPHILS % (MANUAL) 0 % (0-6); LYMPHOCYTES % (MANUAL) 5 % (13-45); MONOCYTES % (MANUAL) 12 % (3-13); SEGMENTED NEUTROPHILS % (MAN) 81 % (42-78); TOTAL CELLS COUNTED 100
[2018-04-20 11:06] LABS: ANISOCYTOSIS 3+; HYPOCHROMASIA SLIGHT; POLYCHROMASIA 1+; TOXIC GRANULATION 2+
[2018-04-20 11:07] LABS: PLATELET COMMENT ADEQUATE
[2018-04-20 11:19] LABS: ALANINE AMINOTRANSFERASE 13 U/L (9-52); ALBUMIN 3.8 g/dL (3.5-5.0); ALKALINE PHOSPHATASE 85 U/L (38-126); ANION GAP 10 (5-19); ASPARTATE AMINO TRANSFERASE 12 U/L (14-36); BILIRUBIN,DIRECT 0.3 mg/dL (0.0-0.4); BILIRUBIN,TOTAL 0.3 mg/dL (0.2-1.3); BLOOD UREA NITROGEN 7 mg/dL (7-20); CALCIUM 9.8 mg/dL (8.4-10.2); CARBON DIOXIDE 24 mmol/L (22-30); CHLORIDE 105 mmol/L (98-107); GLUCOSE 101 mg/dL (75-110); LIPASE 12.9 U/L (23-300); POTASSIUM 3.7 mmol/L (3.6-5.0); SODIUM 139.4 mmol/L (137-145); TOTAL PROTEIN 6.9 g/dL (6.3-8.2)
--- NOTE | 2018-04-20 12:52 | RADIOLOGY REPORT (SQ) ---
EXAM DESCRIPTION: CT ABD/PELVIS WITH IV ONLY COMPLETED DATE/TIME: 04/20/2018 11:53 am REASON FOR STUDY: Abdominal pain history of cervical cancer COMPARISON: Pelvic ultrasound 09/20/2017 CT abdomen pelvis 09/06/2017 TECHNIQUE: CT scan of the abdomen and pelvis performed using helical scanning technique with dynamic intravenous contrast injection. No oral contrast. Images reviewed with lung, soft tissue, and bone windows. Reconstructed coronal and sagittal MPR images reviewed. Delayed images for evaluation of the urinary system also acquired. All images stored on PACS. All CT scanners at this facility use dose modulation, iterative reconstruction, and/or weight based d osing when appropriate to reduce radiation dose to as low as reasonably achievable (ALARA). [facility]: Dose Right [facility]: CareDose [facility]: Dose Right [facility]: Teradose 4D [facility]: [employer] CONTRAST TYPE AND DOSE: contrast/concentration: Isovue 350.00 mg/ml; Total Contrast Delivered: 98.0 ml; Total Saline Delivered: 68.0 ml RENAL FUNCTION: Creatinine 0.6 RADIATION DOSE: CT Rad equipment meets quality standard of care and radiation dose reduction techniq ues were employed. CTDIvol: 10.8 - 14.2 mGy. DLP: 1339 mGy-cm.. LIMITATIONS: None. FINDINGS: Patient gives a history of cervical cancer. There are radiopaque treatment markers in the cervix, with fluid in the vagina, cervix, and endometrial canal best shown on sagittal reconstructio n image 55. Normal size uterus and ovaries. No free cul-de-sac pelvic fluid. On axial image 73, a right pelvic side wall lymph node is present, measuring 2.5 x 1.5 cm in size. T his is new compared to prior CT 09/06/2017. LOWER CHEST: No significant findings. No nodules or infiltrates. LIVER: Normal size. No masses. No dilated ducts. SPLEEN: Normal size. No focal lesions. PANCREAS: No masses. No significant calcifications. No adjacent inflammation or peripancreatic fluid collections. Pancreatic duct not dilated. GALLBLADDER: No identified stones by CT criteria. No inflammatory changes to suggest cholecystitis. ADRENAL GLANDS: No significant masses or asymmetry. RIGHT KIDNEY AND URETER: No solid masses. No significant calcifications. No hydronephrosis or hyd roureter. LEFT KIDNEY AND URETER: No solid masses. No significant calcifications. No hydronephrosis or hydr oureter. AORTA AND VESSELS: No aneurysm. No dissection. Renal arteries, SMA, celiac without stenosis. RETROPERITONEUM: No retroperitoneal adenopathy, hemorrhage or masses. BOWEL AND PERITONEAL CAVITY: No masses or inflammatory changes. No free fluid or peritoneal masses. APPENDIX: Normal. PELVIS: Uterus and pelvic sidewall lymph node as above. Urinary bladder unremarkable. ABDOMINAL WALL: No masses. No hernias. BONES: No significant or acute findings. OTHER: No other significant finding. IMPRESSION: 2.5 x 1.5 cm right pelvic sidewall lymph node. This is worrisome for tumor involvement, given history of cervical cancer. TECHNICAL DOCUMENTATION: JOB ID: [id number] Quality ID # [id number]: Final reports with documentation of one or more dose reduction techniques (e.g., Au tomated exposure control, adjustment of the mA and/or kV according to patient size, use of iterative reconstruction technique) 2010 [employer]- All Rights Reserved Reading location - IP/workstation name: [email or web address]
[2018-04-20] MEDS ORDERED: AZITHROMYCIN 250 MG TABLET PO ONE (13:11)
[2018-04-20] MEDS ORDERED: KETOROLAC TROMETHAMINE INJ/PF 30 MG/1 ML SDV IV ONE (13:11)
[2018-04-20 13:39] VITALS: BP 128/90
[2018-04-20] MEDS ORDERED: CEFTRIAXONE 1 GM/D5W RTU 1 GM/50 ML RTUPB IV ONE (15:00)
== END 2018-04-20 13:42 | disposition home or self-care (01) ==
LOC: ER 08:17
DX: N30.00 Acute cystitis without hematuria (principal); C53.9 Malignant neoplasm of cervix uteri, unspecified; Z79.899 Other long term (current) drug therapy; Z92.3 Personal history of irradiation; R11.0 Nausea; I10 Essential (primary) hypertension; R10.814 Left lower quadrant abdominal tenderness
CPT/HCPCS: 99284; 96361; 96374; 96375; 36415; 87086; 84702; 83690; 85025; 80053; 81001; 74177; J1885; J1170; J2405; J7030

== ENCOUNTER 2018-07-19 09:54 | Emergency (ER) | payer OTHER ==
[2018-07-19 10:03] VITALS: BP 150/95
--- NOTE | 2018-07-19 11:33 | ER Document Report ---
HPI - HPI Time Seen by Provider: 07/19/18 11:24 Pain Level: 4 Notes: Patient is an otherwise healthy 38-year-old female presented to the emergency department with redness and drainage coming from her right eye. Patient reports symptoms started yesterday. Patient reports this happened after she put some hand lotion on her face. She states that she thinks she has pinkeye. She reports this morning it was draining a lot and crusted over. Denies any change in her vision and reports that she is able to see without difficulty. - CONSTITUTIONAL Constitutional: DENIES: Fever, Chills - EENT EENT: REPORTS: Eye problems. DENIES: Sore Throat, Ear Pain - NEURO Neurology: DENIES: Headache, Weakness, Vision blurred, Dizzinesss / Vertigo - CARDIOVASCULAR Cardiovascular: DENIES: Chest pain - RESPIRATORY Respiratory: DENIES: Trouble Breathing, Coughing - GASTROINTESTINAL Gastrointestinal: DENIES: Abdominal Pain, Black / Bloody Stools - URINARY Urinary: DENIES: Dysuria, Urgency, Frequency - REPRODUCTIVE Reproductive: DENIES: : - MUSCULOSKELETAL Musculoskeletal: DENIES: Extremity pain Past Medical History - General Information source: Patient - Social History Smoking Status: Never Smoker Chew tobacco use (# tins/day): No Frequency of alcohol use: None Drug Abuse: None Family History: Arthritis, Hyperlipidemia. denies: CAD - atrial fib Patient has suicidal ideation: No Patient has homicidal ideation: No - Past Medical History Cardiac Medical History: Reports: Hx Hypercholesterolemia, Hx Hypertension Pulmonary Medical History: Denies: Hx Asthma, Hx Bronchitis Renal/ Medical History: Denies: Hx Peritoneal Dialysis Musculoskeletal Medical History: Denies Hx Arthritis, Denies Hx Musculoskeletal Deformity, Denies Hx Musculoskeletal Trauma Traumatic Medical History: Denies: Hx Fractures Past Surgical History: Reports: Hx Abdominal Surgery - umbilical hernia, Hx Section - 2, Hx Tubal Ligation, Hx Umbilical Hernia - Immunizations Immunizations up to date: Yes Hx Diphtheria, Pertussis, Tetanus Vaccination: Yes Vertical Provider Document - CONSTITUTIONAL Notes: PHYSICAL EXAMINATION: GENERAL: Well-appearing, well-nourished and in no acute distress. HEAD: Atraumatic, normocephalic. EYES: Pupils equal round extraocular movements intact, conjunctiva are mildly erythematous right eye. Drainage noted in inner canthus of eye. No pain with ocular movement. ENT: Nares patent NECK: Normal range of motion LUNGS: No respiratory distress Musculoskeletal: Normal range of motion NEUROLOGICAL: Normal speech, normal gait. PSYCH: Normal mood, normal affect. SKIN: Warm, Dry, normal turgor, no rashes or lesions noted. - INFECTION CONTROL TRAVEL OUTSIDE OF THE [place] IN LAST 30 DAYS: No Course - Re-evaluation Re-evalutation: Eye examination was performed with fluorescein stain, no evidence of corneal abrasion. Examination most consistent with conjunctivitis. Patient will be started on antibiotic eyedrops and given ED return precautions. - Vital Signs Vital signs: Temp Pulse Resp BP Pulse Ox 97.9 F 83 18 150/95 H 99 07/19/18 10:02 07/19/18 10:02 07/19/18 10:02 07/19/18 10:02 07/19/18 10:02 Discharge - Discharge Clinical Impression: Conjunctivitis Qualifiers: Conjunctivitis type: unspecified Laterality: right Qualified Code(s): H10.9 - Unspecified conjunctivitis Condition: Stable Disposition: HOME, SELF-CARE Additional Instructions: Conjunctivitis You have an infection in your eye, commonly known as "pink eye." Conjunctivitis causes redness, mild discomfort, itching, and mattering on the eyelids. It is very contagious, so you must be careful to wash your hands after touching your face so you don't pass the infection on to others. Conjunctivitis is caused by both viruses and bacteria. It usually responds quickly to treatment with antibiotic drops. These should be placed in the eye as prescribed (usually every three to four hours while you're awake). If you wear contact lenses, don't put them in your eyes until the infection is cleared and you are no longer using the drops (unless your doctor advises you otherwise). Should you develop increasing eye pain, severe swelling, decreased vision, or fail to improve as expected, please return for re-examination. Please apply 1 drop to the affected eye every 3 hours for 7 to 10 days. Please do not exceed 6 doses per day. Please return to the emergency department if any of the above warning symptoms occur such as increasing pain in the eye, swelling, decreased vision or failure to improve as expected. I expect she also improved significantly in the next 24 hours. He should also consider following up with an sales solutions associate if her symptoms do not rapidly improve. Referrals: GIOVANI BURKS MD [ACTIVE STAFF] - Follow up as needed
[2018-07-19] MEDS ORDERED: POLYMYXIN B SULFATE/TMP OPH SOLN (10 ML/ER DISP) OS PRN (12:02)
== END 2018-07-19 12:25 | disposition home or self-care (01) ==
LOC: ER 09:54
DX: H10.9 Unspecified conjunctivitis (principal); E78.00 Pure hypercholesterolemia, unspecified; I10 Essential (primary) hypertension; Z98.51 Tubal ligation status
CPT/HCPCS: 99282; J3490

== ENCOUNTER 2018-08-19 07:18 | Emergency (ER) | payer OTHER ==
[2018-08-19] MEDS ORDERED: OXYCODONE-ACETAMINOPHEN 5-325 MG TABLET PO ONE (09:37)
[2018-08-19] MEDS ORDERED: ERYTHROMYCIN 0.5% OPH OINT 1 GM UNIT DOSE OD ONE (09:37)
--- NOTE | 2018-08-19 10:36 | ER Document Report ---
ED General - General Chief Complaint: Swelling Stated Complaint: RIGHT EYE PAIN, SWELLING Time Seen by Provider: 08/19/18 09:14 Primary Care Provider: [facility] [Primary Care Provider] - Follow up as needed TRAVEL OUTSIDE OF THE [place] IN LAST 30 DAYS: No - HPI Notes: Patient is a 38-year-old female presents emergency department for evaluation. She states she had "small blisters" above her eyes bilaterally. They were itching and burning. She was seen here, treated for pinkeye. She was sent home on drops which she completed. She states that the itching and blisters malini nued, but seem to be slightly improved. She states over the last several days, however, she has had marked edema of her right eyelid. She states she has absolutely no pain in her eye at all. No blurred vision. She states her vision would be fine if her eyelid were not swollen. No known fevers or chills, no nausea or vomiting. Eating and drinking normally. - Related Data Allergies/Adverse Reactions: No Known Drug Allergies Allergy (Verified 08/19/18 07:31) Past Medical History - General Information source: Patient - Social History Smoking Status: Never Smoker Frequency of alcohol use: None Family History: Arthritis, Hyperlipidemia. denies: CAD - atrial fib Patient has suicidal ideation: No Patient has homicidal ideation: No - Past Medical History Cardiac Medical History: Reports: Hx Hypercholesterolemia, Hx Hypertension Pulmonary Medical History: Denies: Hx Asthma, Hx Bronchitis Renal/ Medical History: Denies: Hx Peritoneal Dialysis Malignancy Medical History: Reports: Hx Cervical Cancer Musculoskeletal Medical History: Denies Hx Arthritis, Denies Hx Musculoskeletal Deformity, Denies Hx Musculoskeletal Trauma Traumatic Medical History: Denies: Hx Fractures Past Surgical History: Reports: Hx Abdominal Surgery - umbilical hernia, Hx Section - 2, Hx Tubal Ligation, Hx Umbilical Hernia - Immunizations Immunizations up to date: Yes Hx Diphtheria, Pertussis, Tetanus Vaccination: Yes Review of Systems - Review of Systems Constitutional: No symptoms reported EENT: See HPI Cardiovascular: No symptoms reported Respiratory: No symptoms reported Gastrointestinal: No symptoms reported Genitourinary: No symptoms reported Musculoskeletal: No symptoms reported Skin: See HPI Neurological/Psychological: No symptoms reported Physical Exam - Vital signs Vitals: Temp Pulse Resp BP Pulse Ox 98.1 F 86 20 147/106 H 99 08/19/18 07:34 08/19/18 07:34 08/19/18 07:34 08/19/18 07:34 08/19/18 07:34 - Notes Notes: Patient is a 38-year-old female who appears her stated age in no acute distress. Head is normocephalic and appears atraumatic. Examination of the eyes reveals a moderate amount of lid edema on the right. She has what appear to be drying vesicles noted on the medial aspect of the left eyelid, with skin cracking. There is a open area to the right medial eyelid without appreciable drainage. Pupils are equal and round, reactive to light. No conjunctival injection. There is a small amount of purulent drainage noted, appears to be coming from the eyelid itself. The eye itself underneath appears uninfected. Extraocular muscles are intact. Oral mucosa is moist. Heart is regular rate and rhythm, lungs are clear to oscillation bilaterally. Neck is supple without meningismus. Patient is awake and alert, neurological exam is nonfocal. Course - Re-evaluation Re-evalutation: 08/19/18 10:31 Patient presents emergency department for evaluation. My feeling is that the patient likely had an allergic blepharitis several weeks ago. He was treated for conjunctivitis instead. At this point, I believe she may have a secondary infection in that area. She is not having any systemic symptoms. She is hypertensive but she is not showing any signs of sepsis or significant infection on her vital signs at this time. I did get an order for her to have erythromycin ophthalmic ointment. She was counseled on lid hygiene. I will also write a low potency topical corticosteroid for her to add carefully to the eyelids only. She is to follow-up with her primary care provider next week. She is to return to the ED with worsening or new concerning symptoms of any sort. 08/19/18 10:32 - Vital Signs Vital signs: Temp Pulse Resp BP Pulse Ox 98.1 F 80 16 146/86 H 100 08/19/18 07:34 08/19/18 13:00 08/19/18 13:00 08/19/18 13:00 08/19/18 13:00 Discharge - Discharge Clinical Impression: Blepharitis of eyelid of left eye, Blepharitis of eyelid of right eye Condition: Stable Disposition: HOME, SELF-CARE Additional Instructions: You have been diagnosed with a condition known as blepharitis, as discussed. It is important that you carry out good eyelid hygiene, including gentle scrubbing of the eyelashes with baby shampoo. Use the erythromycin ointment on the right eye as directed. Apply 1 inch to the right eye every 6 hours while awake for the next week. Use a very small amount of the hydrocortisone cream on to the cracked areas of your left eyelid, and any small itching areas on your right. Do your best to avoid letting any of this enter your eye. Follow-up with your doctor next week. Return to the ED with worsening or new concerning symptoms of any sort. Prescriptions: Erythromycin Base [Erythromycin Oph 1 Gm Oint Ud] 1 applic OD Q6H 7 Days #1 tube RX: Hydrocortisone [Anti-Itch] 28 gm TP BID 7 Days #1 cream..g. [facility]errals: [facility] [Primary Care Provider] - Follow up as needed
[2018-08-19 13:34] VITALS: BP 146/86
== END 2018-08-19 13:00 | disposition home or self-care (01) ==
LOC: ER 07:18
DX: H01.006 Unspecified blepharitis left eye, unspecified eyelid (principal); H01.003 Unspecified blepharitis right eye, unspecified eyelid; I10 Essential (primary) hypertension; Z85.41 Personal history of malignant neoplasm of cervix uteri
CPT/HCPCS: 99283

== ENCOUNTER 2019-01-09 08:00 | Day surgery (SDC) | payer OTHER ==
[2019-01-09] MEDS ORDERED: PROPOFOL INJ 200 MG/20 ML VIAL IV ONE ×2 (08:09→09:23)
[2019-01-09 10:02] VITALS: BP 135/99
--- NOTE | 2019-01-09 12:45 | Operative Report ---
Operative Report DATE OF SURGERY: 01/09/19 Operative Report: The risks, benefits and alternatives of the procedure including the risk of bleeding, perforation requiring surgery have been explained to the patient in detail and informed consent has been obtained. Patient is placed in a left, lateral decubital position. Timeout was called. Propofol medication is administered. Rectal examination is done which did not reveal any masses, tears or fissures. An Olympus videoscope was introduced into the patient's rectum. Scope was then carefully advanced all the way to the cecum. The cecum was identified by the usual anatomical landmarks including the ileocecal valve as well as the appendiceal office. Photodocumentation is obtained. Scope was then sequentially pulled back via the various segments of the colon including the ascending colon, hepatic flexure, transverse colon, splenic flexure, descending colon finally into the rectosigmoid portions of the colon. Retroflexion maneuver is performed. PREOPERATIVE DIAGNOSIS: Change in bowel habits, blood in stool POSTOPERATIVE DIAGNOSIS: Also noted in the rectosigmoid junction associated with adjacent inflammation status post biopsy. Internal hemorrhoids OPERATION: Colonoscopy with biopsy SURGEON: NICK MONTERO ANESTHESIA: LMAC TISSUE REMOVED OR ALTERED: As noted above. COMPLICATIONS: None. ESTIMATED BLOOD LOSS: None. INTRAOPERATIVE FINDINGS: As noted above. PROCEDURE: Patient tolerated the procedure well. No immediate postprocedure complications are noted. Patient is discharged in good condition. Discharge date 01/09/2019. Discharge diet: Regular. Discharge activity: Regular. 2 to 3-week follow-up to discuss findings. Patient is instructed to call the office or proceed to the emergency room should he be any further questions. Wait on the pathology.
== END 2019-01-09 10:20 | disposition home or self-care (01) ==
LOC: END 08:00
PROVIDERS: ATTEND Internal Medicine Gastroenterology
DX: K52.9 Noninfective gastroenteritis and colitis, unspecified (principal); K64.8 Other hemorrhoids; K92.1 Melena; E78.2 Mixed hyperlipidemia; Z87.891 Personal history of nicotine dependence; Z79.899 Other long term (current) drug therapy
CPT/HCPCS: 45380; 88305 ×2; 00811; J2704; 811

== ENCOUNTER 2020-02-05 08:02 | Day surgery (SDC) | payer OTHER ==
[~2020-02-05 08:02] MED LIST: LIDOCAINE 1% INJ-PF (10 MG/ML) 30 ML SDV ONE; PROPOFOL INJ 200 MG/20 ML VIAL IV ONE
[2020-02-05] MEDS ORDERED: LIDOCAINE 2% INJ-PF (100 MG/5 ML) SYRINGE ONE (10:46)
--- NOTE | 2020-02-05 11:06 | Operative Report ---
Operative Report DATE OF SURGERY: 02/05/20 Operative Report: The risk, benefits and alternatives of the procedure including the risk of bleeding, perforation requiring surgery have been explained to the patient in detail and informed consent has been obtained. Patient is placed in the left, lateral decubital position. Timeout was called. Propofol medication is administered. Rectal examination is done which did not reveal any masses, tears or fissures. An Olympus videoscope was introduced into the patient's rectum. Scope was then carefully advanced all the way to the cecum. Cecum was identified by the usual anatomical landmarks including the ileocecal valve as well as the appendiceal office. Photodocumentation is obtained. Scope was then sequentially pulled back via the various segments of the colon including the ascending colon, flexure, transverse colon, splenic flexure, descending colon finally into the rectosigmoid portions of the colon. Retroflexion maneuver is performed. PREOPERATIVE DIAGNOSIS: Change in bowel habit,. Colitis POSTOPERATIVE DIAGNOSIS: Colitis from 0 to 35 cm. Small blood vessel that was oozing that was cauterized in situ. For control of hemorrhage. Internal hemorrhoids OPERATION: Colonoscopy with biopsy. Colonoscopy with control of hemorrhage SURGEON: NICK MONTERO ANESTHESIA: LMAC TISSUE REMOVED OR ALTERED: As noted above. COMPLICATIONS: None. ESTIMATED BLOOD LOSS: None. INTRAOPERATIVE FINDINGS: As noted above. PROCEDURE: Patient tolerated the procedure well. No immediate postprocedure complications are noted. Patient is discharged in good condition. Discharge date 02/05/2020. Discharge diet: Regular. Discharge activity: Regular. 2 to 3-week follow-up to discuss findings. Patient is instructed to call the office or proceed to the emergency room should there be any further problems or questions. Wait on the pathology.
[2020-02-05] MEDS ORDERED: LABETALOL HCL INJ 20 MG/4 ML DISP.SYRIN IV ONE (11:18)
[2020-02-05 11:58] VITALS: BP 156/95
== END 2020-02-05 12:28 | disposition home or self-care (01) ==
LOC: END 08:02
PROVIDERS: ATTEND Internal Medicine Gastroenterology
DX: K52.9 Noninfective gastroenteritis and colitis, unspecified (principal); K64.8 Other hemorrhoids; R58 Hemorrhage, not elsewhere classified; I10 Essential (primary) hypertension; Z85.41 Personal history of malignant neoplasm of cervix uteri; Z92.3 Personal history of irradiation; Z87.891 Personal history of nicotine dependence; Z79.899 Other long term (current) drug therapy; Z98.890 Other specified postprocedural states; Z98.51 Tubal ligation status; E66.9 Obesity, unspecified; Z87.19 Personal history of other diseases of the digestive system
CPT/HCPCS: 45380; 45382; 88305 ×2; 00811; J3490 ×2; J2001; J2704; 45385; 811